=== PATIENT | female | born 1955 | race Caucasian/White ===

== ENCOUNTER → 2018-06-18 16:25 | Outpatient (CLI) | payer MEDICARE, SELFPAY | PROVIDERS: Family Provider Nurse Practitioner; PCP Nurse Practitioner; Visit Provider Physician Assistant | DX: L02.212 Cutaneous abscess of back [any part, except buttock and flank] (principal) | CPT/HCPCS: 87070; 87075; 87077; 87186; 87205 ==

== ENCOUNTER 2018-07-30 14:49 | Emergency (ER) | payer OTHER, MEDICARE, MEDICAID, SELFPAY ==
[2018-07-30 14:51] VITALS: BP 168/96; PULSE 107; RESP 16; TEMP 36.3; O2SAT 97; BMI 45.6
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
[2018-07-30 16:39] VITALS: PULSE 117; RESP 17; O2SAT 96
== END 2018-07-30 16:40 | disposition home or self-care (01) ==
PROVIDERS: Emergency Provider Emergency Medicine; Family Provider Nurse Practitioner; PCP Nurse Practitioner
DX: S09.90XA Unspecified injury of head, initial encounter (principal); M54.2 Cervicalgia; M79.601 Pain in right arm; M54.5 Low back pain; V49.40XA Driver injured in collision with unspecified motor vehicles in traffic accident, initial encounter; Y93.9 Activity, unspecified; Y92.9 Unspecified place or not applicable; Y99.9 Unspecified external cause status; I25.10 Atherosclerotic heart disease of native coronary artery without angina pectoris; I50.9 Heart failure, unspecified; E11.9 Type 2 diabetes mellitus without complications; J45.909 Unspecified asthma, uncomplicated; Z79.4 Long term (current) use of insulin; I25.2 Old myocardial infarction; Z87.891 Personal history of nicotine dependence; Z95.810 Presence of automatic (implantable) cardiac defibrillator
CPT/HCPCS: 70450; 72100; 72125; 99282

== ENCOUNTER → 2019-07-28 14:31 | Outpatient (CLI) | payer MEDICARE, SELFPAY ==
[2019-07-28 14:20] VITALS: BMI 45.6
[2019-07-28 15:24] LABS: Anion Gap 4 (5-15); BUN 13 mg/dL (7-18); BUN/Creat Ratio 16.9 RATIO (10-20); Calcium,Total 8.5 mg/dL (8.5-10.1); Chloride 107 mmol/L (98-107); Creatinine, Serum 0.77 mg/dL (0.55-1.02); EST Glomerular Filtration Rate 80 mL/min (>60); Est Glom Filt Rate - Afr Amer 97 mL/min (>60); Glucose 319 mg/dL (74-106); Sodium Level 140 mmol/L (136-145)
[2019-07-28 15:30] LABS: BNP,B-Type NATRIURETIC PEPTIDE 259.2 pg/mL (0-100)
== END ==
PROVIDERS: Family Provider Nurse Practitioner; PCP Nurse Practitioner; Referring Provider Nurse Practitioner Family; Visit Provider Nurse Practitioner Family
DX: I25.10 Atherosclerotic heart disease of native coronary artery without angina pectoris (principal); I50.20 Unspecified systolic (congestive) heart failure; E11.9 Type 2 diabetes mellitus without complications; I25.5 Ischemic cardiomyopathy; R07.9 Chest pain, unspecified; R06.00 Dyspnea, unspecified
CPT/HCPCS: 36415; 80048; 83880

== ENCOUNTER → 2019-08-11 08:56 | Outpatient (CLI) | payer MEDICARE, SELFPAY ==
[2019-07-28 14:20] VITALS: BMI 45.6
[2019-08-11 09:47] LABS: Anion Gap 4 (5-15); BUN 15 mg/dL (7-18); Calcium,Total 8.7 mg/dL (8.5-10.1); Chloride 102 mmol/L (98-107); Creatinine, Serum 0.79 mg/dL (0.55-1.02); EST Glomerular Filtration Rate 78 mL/min (>60); Est Glom Filt Rate - Afr Amer 95 mL/min (>60); Glucose 228 mg/dL (74-106); Potassium 3.9 mmol/L (3.5-5.1); Sodium Level 137 mmol/L (136-145)
== END ==
PROVIDERS: Family Provider Nurse Practitioner; PCP Nurse Practitioner; Referring Provider Nurse Practitioner Family; Visit Provider Nurse Practitioner Family
DX: R06.00 Dyspnea, unspecified (principal)
CPT/HCPCS: 36415; 80048

== ENCOUNTER → 2019-08-17 06:31 | Outpatient (CLI) | payer MEDICARE, MEDICAID, SELFPAY ==
[2019-07-28 14:20] VITALS: BMI 45.6
--- NOTE | 2019-08-17 06:33 | ECHOCS_ITS ---
Reason For Study: DYSPNEA Procedure This was a 2D Doppler, Color Flow transthoracic echocardiogram. Contrast injection was performed. The study was technically difficult. Exam performed in department. Left Ventricle Severely dilated left ventricle. The estimated ejection fraction is 20 %. Severe segmental systolic dysfunction (see wall motion). Hutchins : Akinetic. Mid-anteroseptal : Akinetic. Mid-Inferior: Normal. Infero-Basal: Normal. Lateral-Basal: Normal. Anterio-Basal: Normal. The rest of the wall segments are hypokinetic. Right Ventricle Normal RV size. ICD or pacer leads identified within the right ventricle. Normal systolic function. Atria The left atrium is moderately enlarged. The right atrium is mildly enlarged. Mitral Valve Normal mitral valve. Mild-Moderate (1-2+) eccentric mitral valve insufficiency. Tricuspid Valve Normal tricuspid valve. Mild to moderate (1-2+) tricuspid valve insufficiency. Pulmonary artery systolic pressure is 36 mmHg. Aortic Valve The aortic valve is not well visualized. Pulmonic Valve The pulmonic valve is not well visualized. Great Vessels Normal aortic root. The pulmonary artery is normal size. Normal inferior vena cava. Pericardium/Pleural No pericardial effusion. Medication Diluted definity 4.0ml given slow IV push to enhance endocardial definition. MMode/2D Measurements & Calculations LVIDd: 7.2 cm IVSd: 0.99 cm Ao root diam: 3.8 cm LVIDs: 6.7 cm LVPWd: 1.1 cm RVDd: 5.2 cm FS: 6.6 % LAV(MOD-bp): 103.1 ml LVAd ap4: 47.1 cm2 SV(MOD-sp4): 44.9 ml LAV(MOD-bp) Indexed: 43.3 ml/m2 EDV(MOD-sp4): 194.1 ml LAV(MOD-sp2): 83.8 ml EDV(sp4-el): 204.7 ml LAV(MOD-sp4): 110.8 ml LVAs ap4: 39.5 cm2 ESV(MOD-sp4): 149.2 ml ESV(sp4-el): 157.1 ml EF(MOD-sp4): 23.1 % EF(sp4-el): 23.3 % SV(sp4-el): 47.6 ml LA A4 area: 29.2 cm2 LA dimension(2D): 5.1 cm RA A4 area: 18.9 cm2 Doppler Measurements & Calculations MV E max mark: 122.3 cm/sec Lat Peak E' Mark: 4.7 cm/sec Med Peak E' Mark: 1.9 cm/sec MV A max mark: 84.7 cm/sec E/E' lat: 26.3 E/E' med: 63.0 MV E/A: 1.4 Ao V2 max: 72.7 cm/sec LV V1 max: 63.9 cm/sec PA V2 max: 85.7 cm/sec Ao max P.1 mmHg LV V1 max P.6 mmHg TR max mark: 281.2 cm/sec TR max P.7 mmHg Interpretation Summary Severely dilated left ventricle. The estimated ejection fraction is 20 %. Severe segmental systolic dysfunction (see wall motion). Compared to previous study, the left ventricular systolic function is the same.. Contrast injection was performed. Ordering Physician: Beni Spear/Triston Chau Referring Physician: VELMA TOMPKINS Performed By: Shawna Orona, HIWOTCS, RVT
--- NOTE | 2019-08-17 15:09 | STRESSREP ---
Stress Test Report Pharmacologic myocardial perfusion stress test. 64-year-old lady with a history of ischemic cardiomyopathy and a totally occluded left anterior descending artery. Myocardial perfusion protocol. Resting EKG demonstrates normal sinus rhythm with a rate of 98 bpm poor R wave progression is noted resting blood pressures 138/84 mmHg. 0.4 mg of regadenoson was infused per usual protocol followed by rapid intravenous saline flush injection continuous EKG monitoring was performed. The patient maintained sinus rhythm throughout the recording. The maximum heart rate attained was 121 bpm which was 44% of maximum predicted heart rate. The maximum workload was 1 metabolic equivalent. Myocardial perfusion protocol. Next line 14.5 mCi of technetium 99m sestamibi was injected at rest. 0.4 mg of regadenoson was infused per usual protocol peak infusion 44.6 mCi of technetium 99m sestamibi was injected stress images were obtained stress and rest images were reconstructed in comparing the short axis vertical long horizontal long axis. Gated images were also obtained for next Perfusion SPECT analysis: Review of the stress images demonstrate a dilated cardiac silhouette size. There is a large defect involving the mid to distal anterior wall, apex and anterior septal wall. The septum and lateral wall appeared to be well perfused. The basal inferior wall has reduced perfusion. This is present on the stress and rest images to a similar extent suggesting an extensive anterior apical infarct. The right ventricle is noted to be prominent and dilated as well. Gated SPECT analysis: The gated ejection fraction is noted to be 19%. Conclusion: Myocardial perfusion stress test with previous extensive anterior apical infarct. Dilated prominent right ventricle. Ischemic cardiomyopathy. Ejection fraction of 19%.
== END ==
PROVIDERS: Family Provider Nurse Practitioner; PCP Nurse Practitioner; Referring Provider Nurse Practitioner Family; Visit Provider Nurse Practitioner Family
DX: R06.00 Dyspnea, unspecified (principal); R06.02 Shortness of breath; I25.10 Atherosclerotic heart disease of native coronary artery without angina pectoris; I50.20 Unspecified systolic (congestive) heart failure; E11.9 Type 2 diabetes mellitus without complications; I25.5 Ischemic cardiomyopathy; R07.9 Chest pain, unspecified
CPT/HCPCS: 78452; 93017; 93306; A9500; Q9957; A4216; C8929; J2785

== ENCOUNTER 2019-11-05 13:58 | Inpatient (IN) | payer MEDICARE, MEDICAID, SELFPAY ==
[2019-07-28 14:20] VITALS: BMI 45.6
[2019-11-05] VITALS (12 sets, daily range): BP systolic 124–142; BP diastolic 71–102; PULSE 103–125; RESP 19–28; TEMP 36.6–37.7; O2SAT 92–94; BMI 65.0; BMI 65.1; BMI 63.6
--- NOTE | 2019-11-05 14:18 | EKG12_ITS ---
Test Reason : SOB Blood Pressure : / mmHG Vent. Rate : 115 BPM Atrial Rate : 115 BPM P-R Int : 140 ms QRS Dur : 132 ms QT Int : 358 ms P-R-T Axes : 058 -58 095 degrees QTc Int : 495 ms Sinus tachycardia Possible Left atrial enlargement Left axis deviation Non-specific intra-ventricular conduction block Nonspecific T - wave abnormality Abnormal ECG Confirmed by MICHELE THOMPSON, NAILA ([id number]), video tape editor SHAKILA JONES ([id number]) on 11/09/2019 11:49:00 AM Referred By: JOSIE Confirmed By:NAILA BAUTISTA MD
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
--- NOTE | 2019-11-05 14:23 | RAD_ITS ---
STUDY: X-RAY CHEST REASON FOR EXAM: Female, 64 years old. Shortness of breath. TECHNIQUE: Single AP portable view of the chest. COMPARISON: Comparison is made with prior study dated November 06, 2017. FINDINGS: EKG electrodes are seen. There is evidence of vascular congestion and CHF. There is no demonstrated pleural abnormality. There is moderate cardiac enlargement. A left-sided unipolar pacemaker seen. Normal mediastinum and eileen. Normal visualized pulmonary arteries. There is atherosclerotic calcification of the aortic arch with tortuosity. There are diffuse degenerative changes of the visualized thoracic spine. Normal visualized ribs, clavicles, and shoulders. There is no demonstrated abnormality of the visualized soft tissue structures of the upper abdomen. RAD/Chest 1 View (Portable) IMPRESSION: Cardiomegaly and CHF. Electronically Signed: Suraj Eagle, at 14:36 EST , Service support ,
[2019-11-05] MEDS: Ondansetron 4 MG/2 ML Vial IV (14:48)
[2019-11-05 14:50] LABS: Absolute Lymphocyte Count 0.82 X10^3/uL (0.83-4.51); Absolute Neutrophil Count 21.8 X10^3/uL (2.0-7.7); Basophil% 0.4 % (0-1); Eosinophil# 0.01 X10^3/uL; Hematocrit 46.3 % (37-47); Hemoglobin 14.9 g/dL (12.0-15.0); Lymphocyte # 0.82 X10^3/ul (4.0); Lymphocyte % 3.4 % (19-41); Mean Corp Hgb Conc 32.2 g/dL (32-36); Mean Corpuscular Volume 93.3 fL (81-99); Mean Platelet Vol. 11.4 fl (6.2-12.0); Monocyte# 1.17 X10^3/uL; Monocyte% 4.9 % (0-10); NRBC Flagged by Analyzer 0 % (0-5); Neutrophil # 21.84 X10^3/uL (2.7-7.7); Neutrophil % 90.6 % (47-70); POSITIVE DIFFERENTIAL YES; Platelet Count 222 K/mm3 (150-450); RBC Distribution Width CV 13.9 % (11.6-14.6); RBC Distribution Width SD 47.5 fl (35.1-43.9); Red Blood Count 4.96 M/mm3 (4.2-5.4); White Blood Count 24.1 K/mm3 (4.4-11.0)
[2019-11-05 14:52] LABS: Differential Indicated SCAN CRITERIA MET
[2019-11-05 15:10] LABS: Differential Comment SCANNED
[2019-11-05 15:20] LABS: Anion Gap 6 (5-15); BUN 13 mg/dL (7-18); BUN/Creat Ratio 14.2 RATIO (10-20); Calcium,Total 8.9 mg/dL (8.5-10.1); Chloride 102 mmol/L (98-107); Creatinine, Serum 0.92 mg/dL (0.55-1.02); EST Glomerular Filtration Rate 66 mL/min (>60); Est Glom Filt Rate - Afr Amer 80 mL/min (>60); Estimated Creatinine Clearance 51.78 ml/min; Glucose 227 mg/dL (74-106); Potassium 4.7 mmol/L (3.5-5.1); Sodium Level 137 mmol/L (136-145)
[2019-11-05] MEDS: Ipratropium/Albuterol Sulfate 3 ML AMPUL.NEB INHALATION ×3 (15:59→23:27)
[2019-11-05 16:06] LABS: Mucous, Urine 0 SEEN /hpf (<or=2+)
[2019-11-05] MEDS: MethylPREDNISolone 125 MG/2 ML Vial IV (16:25)
[2019-11-05 16:51] LABS: Lactic Acid 3.1 mmol/L (0.4-1.9)
--- NOTE | 2019-11-05 17:39 | NURSING ---
PCU OBS SOB PAINTSIL
--- NOTE | 2019-11-05 18:00 | PCM.HP.STD ---
<Noe Cohen - Last Filed: 11/05/19 18:00> Problem List (1) Sepsis Status: Acute (2) AALIYAH (obstructive sleep apnea) Status: Acute (3) Gastroenteritis Status: Acute (4) Chronic respiratory failure with hypoxia Status: Chronic (5) Systolic CHF Status: Chronic Comment: EF 25% 04/2014 (6) Diabetes mellitus, type II Status: Chronic (7) Asthma Status: Chronic (8) Hyperlipidemia Status: Chronic (9) Cardiomyopathy, ischemic Status: Chronic (10) CAD (coronary artery disease) Status: Chronic (11) Morbid obesity with BMI of 40.0-44.9, adult Status: Chronic History of Present Illness Date of Admission: 11/05/19 Chief Complaint: nausea and vomiting The patient is a 64 year old F with pmhx as above who presented to the ER with intractable nausea and dry heaving, and diarrhea. She was in her normal state of health until this morning. At about 0400 she started having dry heaves. She has also had about 4 episodes of diarrhea. She has no abdominal pain, no fevers or chills. She has not eaten anything today. She did drink about 1/2 gallon of water this AM. She has some LE edema, but again this is chronic. She states her friend brought her some new dumpling to eat that she had never had before from the [employer] store. She has not recently travelled, and has no contact with farm animals. Her neighbor is currently sick. She also has body aches, rhinorrhea, congestion, nonproductive cough. She is chronically SOB and on O2 at 3lpm all the times 2/2 COPD. [] Past Medical History Past Medical History (Chronic Problems): Chronic Problems (Last Reviewed 06/30/18 @ 13:32 by Natalia Pope) Chronic respiratory failure with hypoxia (Chronic) Atherosclerotic heart disease of [place] coronary artery without angina pectoris (Chronic) Automatic implantable cardiac defibrillator in situ (Chronic) Implant: 04/12/[address] 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 Thamllium redistribution study 05/13/14 to assess viability performed, demonstrating large area of infarct involving the anterior wall apex and part of the lateral wall (medical therapy only). Systolic CHF (Chronic) EF 25% 04/2014 History of tobacco use (Chronic) Diabetes mellitus, type II (Chronic) Asthma (Chronic) Allergic rhinitis (Chronic) Hyperlipidemia (Chronic) Hyponatremia (Chronic) Cardiomyopathy, ischemic (Chronic) CAD (coronary artery disease) (Chronic) Morbid obesity with BMI of 40.0-44.9, adult (Chronic) Medical History: Medical History (Last Reviewed 06/30/18 @ 13:32 by Natalia Pope) Atherosclerotic heart disease of [place] coronary artery without angina pectoris (Chronic) I25.10 Old myocardial infarction (Chronic) I25.2 Family history of premature coronary heart disease (Chronic) Z82.49 Male < 55 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 Thamllium redistribution study 05/13/14 to assess viability performed, demonstrating large area of infarct involving the anterior wall apex and part of the lateral wall (medical therapy only). Systolic CHF (Chronic) I50.20 EF 25% 04/2014 History of tobacco use (Chronic) Z87.891 Diabetes mellitus, type II (Chronic) E11.9 Hyperlipidemia (Chronic) E78.5 Hyponatremia (Chronic) E87.1 Cardiomyopathy, ischemic (Chronic) I25.5 CAD (coronary artery disease) (Chronic) I25.10 Dyspnea (Acute) R06.00 Chest pain (Acute) R07.9 Hyperglycemia (Acute) R73.9 Morbid obesity with BMI of 40.0-44.9, adult (Chronic) E66.01, Z68.41 Allergies BRADY Inhibitors Allergy (Verified 11/05/19 14:09) unknown codeine Allergy (Verified 11/05/19 14:09) Hives lisinopril Allergy (Verified 11/05/19 14:09) Unknown metformin Allergy (Verified 11/05/19 14:09) Unknown Aupsmoi-Vin-Cvw Reductase Inhibitor Allergy (Verified 11/05/19 14:09) Unknown Home Medications: Ambulatory Orders Medication Instructions Recorded insulin aspart (U-100) 100 unit/mL 15 unit SC TIDCM 06/18/18 (3 mL) subcutaneous pen insulin glargine (U-100) 100 60 unit SC BID ml 06/18/18 unit/mL subcutaneous solution albuterol sulfate HFA 90 1 puff INHALATION Q6H PRN PRN 07/28/19 mcg/actuation aerosol inhaler furosemide 40 mg tablet 40 mg PO BID tab 08/11/19 potassium chloride ER 10 mEq 10 meq PO BID #180 cap 08/11/19 capsule,extended release Cetirizine HCl [Zyrtec] 10 mg PO DAILY 11/05/19 Ibuprofen 600 mg PO DAILY PRN PRN 11/05/19 Surgical History: Surgical History (Last Reviewed 06/30/18 @ 13:32 by Natalia Pope) Automatic implantable cardiac defibrillator in situ (Chronic) Z95.810 Implant: 04/12/[address] Riley S/P cataract extraction Z98.49 S/P cholecystectomy Z90.49 Soft tissue abscess L02.91 Surgical History: - - R thigh wound debridments, Cholecystectomy, Cardiac catheterization. Psychiatric History: No pertinent psych hx AUTOPSY ASSISTANT History: No pertinent AUTOPSY ASSISTANT history Lives: Alone Smoking Status: Former smoker Tobacco Use: Non-smoker Alcohol: None Drugs: None - *Family History Maternal Family History: Family History (Last Reviewed 11/05/19 @ 18:07 by NAGI Willett) Mother CAD (coronary artery disease) CHF (congestive heart failure) Diabetes COPD (chronic obstructive pulmonary disease) Father CAD (coronary artery disease) Brother CAD (coronary artery disease) Diabetes Brother Diabetes Sister CAD (coronary artery disease) Thyroid disorder History Items: Diabetes, Heart Disease Paternal Family History: Family History (Last Reviewed 11/05/19 @ 18:07 by NAGI Willett) Mother CAD (coronary artery disease) CHF (congestive heart failure) Diabetes COPD (chronic obstructive pulmonary disease) Father CAD (coronary artery disease) Brother CAD (coronary artery disease) Diabetes Brother Diabetes Sister CAD (coronary artery disease) Thyroid disorder History Items: Heart Disease Review of Systems Constitutional: Denies: Chills, Fever, Weight Change HEENT: Denies: Head Aches, Sinus Congestion, Sinus Drainage Cardiovascular: Reports: Edema. Denies: Chest Pain, Chest Pressure, Chest Tightness, Palpitations Respiratory: Reports: Cough. Denies: Shortness of Breath, Shortness of breath at rest, Sputum production, Wheezing Gastrointestinal: Reports: Diarrhea, Nausea, Vomiting. Denies: Abdominal Pain Genitourinary: Denies: Dysuria Musculoskeletal: Denies: Joint Pain, Joint Tenderness Skin: Denies: Rash, Wounds Neurological: Denies: Numbness, Tingling, Focal weakness Psychiatric: Denies: Anxiety, Depression, Homicidal Ideations, Suicidal Ideations Hematologic/ Lymphatic: Denies: Easy Bruising, Easy Bleeding VTE Information - Inpt Only VTE Present on Admission: No VTE Mechan Device Prophylaxis: None VTE Pharm Prophylaxis ordered?: Yes Patient Problems: Active and Suspected Problems (Last Reviewed 06/30/18 @ 13:32 by Natalia Pope) Sepsis (Acute) AALIYAH (obstructive sleep apnea) (Acute) Gastroenteritis (Acute) - Physical Exam Vitals/I&O's: Vital Signs Temp Pulse Resp BP Pulse Ox 99.1 F 112 H 19 H 129/102 H 94 11/05/19 14:00 11/05/19 16:25 11/05/19 16:25 11/05/19 16:25 11/05/19 16:25 Oxygen Flow Rate (L/min) 4 Oxygen Delivery Method Nasal Cannula Weight: 367 lb 4.642 oz Body Mass Index (BMI) 65.0 General: Alert, Oriented x3, Cooperative HEENT: Atraumatic, PERRLA, EOMI, Normocephalic Neck: Supple, No JVD, Negative Carotid Bruits Lungs: Clear to auscultation, Normal air movement Cardiovascular: Regular rate, No murmurs Abdomen: Bowel Sounds Present, Soft, Non Tender, Obese Extremities: No edema, Capillary Refill Less than 3 Seconds Skin: No rashes, No breakdown Musculoskeletal: No Tenderness to Palpation of Joints or Extremities Neurological: Cranial nerves II-XII grossly intact Psych/Mental Status: Normal Affect, Appropriate, Alert and oriented to time, place, person, mood and affect Laboratory Results 11/05/19 14:45: WBC 24.1 H, RBC 4.96, Hgb 14.9, Hct 46.3, MCV 93.3, MCH 30.0, MCHC 32.2, RDW Std Deviation 47.5 H, RDW Coeff of Tabby 13.9, Plt Count 222, MPV 11.4, Immature Gran % (Auto) 0.700, Neut % (Auto) 90.6 H, Lymph % (Auto) 3.4 L, [place] % (Auto) 4.9, Eos % (Auto) 0.0, Baso % (Auto) 0.4, Absolute Neuts (auto) 21.8 H, Absolute Lymphs (auto) 0.82 L, Nucleated RBC % 0, Differential Comment SCANNED 11/05/19 14:45: Sodium 137, Potassium 4.7, Chloride 102, Carbon Dioxide 29.0, Anion Gap 6, BUN 13, Creatinine 0.92, Estim Creat Clear Calc 51.78, Est GFR (MDRD) Af Amer 80, Est GFR (MDRD) Non-Af 66, BUN/Creatinine Ratio 14.2, Glucose 227 H, Calcium 8.9, Troponin I 0.015 11/05/19 14:45: B-Natriuretic Peptide Pending 11/05/19 15:50: Urine Color Pending, Urine Clarity Pending, Urine pH Pending, Ur Specific [place] Pending, Urine Protein Pending, Urine Glucose (UA) Pending, Urine Ketones Pending, Urine Occult Blood Pending, Urine Nitrite Pending, Urine Bilirubin Pending, Urine Urobilinogen Pending, Ur Leukocyte Esterase Pending, Urine RBC Pending, Urine WBC Pending, Ur Squamous Epith Cells Pending, Urine Bacteria Pending, Urine Mucus Pending 11/05/19 16:00: Lactic Acid 3.1 H* Assessment/Plan All Active Problems (Last Reviewed 06/30/18 @ 13:32 by Natalia Pope) Sepsis (Acute) AALIYAH (obstructive sleep apnea) (Acute) Gastroenteritis (Acute) Dyspnea (Acute) Chest pain (Acute) Pseudohypontremia (Acute) Hyperglycemia (Acute) 1. Acute severe sepsis 2/2 gastroenteritis presumed viral, possibly viral URI - URI symptoms and acute onset of N/V/D. WBC 24k, LA elevated at 3.1, temp 96.0, tachycardia and tachypnea. Send viral panel and enteric panel. UA is pending. Supportive care. IV fluids - Avoid overdiuresis with hx ischemic CM and LE edema. 2. Hx systolic CHF and ischemic CM - hold lasix. BNP pending. EF 20%. Has AICD. Trop neg. 3. Chronic hypoxic resp failure 2/2 COPD - doubt acute exacerbation. No increased SOB or wheezing. Continue home meds. 4. DMt2 with morbid obesity - continue insulin + SSI. 5. Hx CAD, NSTEMI. Follows Dr. Chau. 6. AALIYAH - continue CPAP qhs. DVT ppx: lovenox DC planning: PTOT This patient was seen by Noe Cohen PA-C under the supervision of Dr. Encarnacion. <Julianne Encarnacion - Last Filed: 11/05/19 18:48> History of Present Illness The patient is a 64 year old F [] Past Medical History Medical History: Medical History (Last Reviewed 06/30/18 @ 13:32 by Natalia Pope) Atherosclerotic heart disease of [place] coronary artery without angina pectoris (Chronic) I25.10 Old myocardial infarction (Chronic) I25.2 Family history of premature coronary heart disease (Chronic) Z82.49 Male < 55 Other fdc (current) drug therapy (Chronic) Z79.899 Acute on chronic systolic CHF (congestive heart failure) (Chronic) I50.23 NSTEMI (non-ST elevated myocardial infarction) (Chronic) I21.4 Cardiac catheterization 04/2014 w/ normal left main coronary artery, totally occluded left anterior descending at the ostium, left circumflex artery without disease, dominant right coronary artery with no significant disease, severe left ventricular systolic dysfunction with anterior kinesis with EF estimated 25%. Thamllium redistribution study 05/13/14 to assess viability performed, demonstrating large area of infarct involving the anterior wall apex and part of the lateral wall (medical therapy only). Systolic CHF (Chronic) I50.20 EF 25% 04/2014 History of tobacco use (Chronic) Z87.891 Diabetes mellitus, type II (Chronic) E11.9 Hyperlipidemia (Chronic) E78.5 Hyponatremia (Chronic) E87.1 Cardiomyopathy, ischemic (Chronic) I25.5 CAD (coronary artery disease) (Chronic) I25.10 Dyspnea (Acute) R06.00 Chest pain (Acute) R07.9 Hyperglycemia (Acute) R73.9 Morbid obesity with BMI of 40.0-44.9, adult (Chronic) E66.01, Z68.41 Allergies BRADY Inhibitors Allergy (Verified 11/05/19 14:09) unknown codeine Allergy (Verified 11/05/19 14:09) Hives lisinopril Allergy (Verified 11/05/19 14:09) Unknown metformin Allergy (Verified 11/05/19 14:09) Unknown Gducnac-Zkf-Col Reductase Inhibitor Allergy (Verified 11/05/19 14:09) Unknown Surgical History: Surgical History (Last Reviewed 06/30/18 @ 13:32 by Natalia Pope) Automatic implantable cardiac defibrillator in situ (Chronic) Z95.810 Implant: 04/12/[address] Riley S/P cataract extraction Z98.49 S/P cholecystectomy Z90.49 Soft tissue abscess L02.91 - *Family History Maternal Family History: Family History (Last Reviewed 11/05/19 @ 18:07 by NAGI Willett) Mother CAD (coronary artery disease) CHF (congestive heart failure) Diabetes COPD (chronic obstructive pulmonary disease) Father CAD (coronary artery disease) Brother CAD (coronary artery disease) Diabetes Brother Diabetes Sister CAD (coronary artery disease) Thyroid disorder Paternal Family History: Family History (Last Reviewed 11/05/19 @ 18:07 by NAGI Willett) Mother CAD (coronary artery disease) CHF (congestive heart failure) Diabetes COPD (chronic obstructive pulmonary disease) Father CAD (coronary artery disease) Brother CAD (coronary artery disease) Diabetes Brother Diabetes Sister CAD (coronary artery disease) Thyroid disorder - Physical Exam Vitals/I&O's: Vital Signs Temp Pulse Resp BP Pulse Ox 99.9 F H 111 H 23 H 124/71 H 93 11/05/19 18:13 11/05/19 18:13 11/05/19 18:13 11/05/19 18:13 11/05/19 18:13 Oxygen Flow Rate (L/min) 4 Oxygen Delivery Method Nasal Cannula Weight: 166.6 kg Body Mass Index (BMI) 65.0 Laboratory Results 11/05/19 14:45: WBC 24.1 H, RBC 4.96, Hgb 14.9, Hct 46.3, MCV 93.3, MCH 30.0, MCHC 32.2, RDW Std Deviation 47.5 H, RDW Coeff of Tabby 13.9, Plt Count 222, MPV 11.4, Immature Gran % (Auto) 0.700, Neut % (Auto) 90.6 H, Lymph % (Auto) 3.4 L, [place] % (Auto) 4.9, Eos % (Auto) 0.0, Baso % (Auto) 0.4, Absolute Neuts (auto) 21.8 H, Absolute Lymphs (auto) 0.82 L, Nucleated RBC % 0, Differential Comment SCANNED 11/05/19 14:45: Sodium 137, Potassium 4.7, Chloride 102, Carbon Dioxide 29.0, Anion Gap 6, BUN 13, Creatinine 0.92, Estim Creat Clear Calc 51.78, Est GFR (MDRD) Af Amer 80, Est GFR (MDRD) Non-Af 66, BUN/Creatinine Ratio 14.2, Glucose 227 H, Calcium 8.9, Troponin I 0.015 11/05/19 14:45: B-Natriuretic Peptide Pending 11/05/19 15:50: Urine Color Mag, Urine Clarity Turbid, Urine pH 5.0, Ur Specific [place] 1.025, Urine Protein 500 H, Urine Glucose (UA) 250 H, Urine Ketones 15 H, Urine Occult Blood 250 H, Urine Nitrite Positive H, Urine Bilirubin 1 H, Urine Urobilinogen 4 H, Ur Leukocyte Esterase 25 H, Urine RBC 10-25 SEEN, Urine WBC 0-5 SEEN, Ur Squamous Epith Cells 0-5 SEEN, Amorphous Sediment 1+ URATE, Urine Bacteria 2+, Urine Mucus 0 SEEN 11/05/19 16:00: Lactic Acid 3.1 H* Assessment/Plan This patient was seen in conjunction with NAGI Willett. I have independently interviewed and examined the patient and reviewed pertinent historical, laboratory, and other data. Please refer to NAGI Willett note for his patient's presentation, findings, and recommendations. I have reviewed and his note and concur with his documentation 64-year-old female with multiple comorbidities significant for COPD on 3 L of oxygen, CHF with EF of 20%, status post ICD, CAD status post stents, type II DM, hypertension who comes in with complaints of nausea and dry heaving that started on the morning of admission. Patient admits to eating some dumplings that her friend both from the [employer] store. She denied any fever but had chills. She has not gone any worsening of her shortness of breath. She admits that her next-door neighbor is currently sick. She admits to runny nose and cough which is dry. She has been taking her Lasix but has not been drinking water. She drank about half a gallon of water this morning. Physical Exam: Gen: Looks in some discomfort, not pale, not jaundiced, super morbidly obese CVS:HS I +II, regular, no murmurs RESP: Diminished in all lung zones, no wheezes GI: BS present and normal, soft, nontender, no palpable organs EXT: Bilateral trace pedal edema ASSESSMENT: 1. Severe sepsis secondary to acute gastroenteritis, likely viral 2. Acute upper respiratory infection, no clear signs of COPD exacerbation 3. Chronic systolic CHF/ischemic cardiomyopathy/CAD 4. Chronic hypoxic respiratory failure/AALIYAH Plan: Enteric panel Resp panel Symptomatic treatment with prn anti-emetic Resume home lasix, strict I & Os Code Visit Inpatient E&M: 51364 Init Hosp L3
[2019-11-05 18:08] LABS: Color, Urine Amber (Yellow); Glucose, Dipstick 250 mg/dl (Normal); Ketone-Dipstick 15 mg/dl (Negative); Leukocyte Esterase-Dipstick 25 /ul (Negative); Nitrite-Dipstick Positive (Negative); Occult Blood-Urine 250 /ul (Negative); Protein-Dipstick 500 mg/dl (Negative); Specific Gravity, Urine 1.025 (1.002-1.030); Urine Clarity Turbid (Clear); Urine Urobilinogen 4 mg/dl (Normal)
[2019-11-05 18:10] LABS: Urine Bilirubin Dipstick 1 mg/dL (Negative)
[2019-11-05 18:23] LABS: White Blood Cells 0-5 SEEN /hpf (0-5)
[2019-11-05 18:24] LABS: Amorphous Sediment 1+ URATE; Bacteria 2+ /hpf (None Seen); Red Blood Cells-Urine 10-25 SEEN /hpf (0-5); Squamous Epithelial Cells - UA 0-5 SEEN /hpf (5-10)
[2019-11-05 18:40] LABS: BNP,B-Type NATRIURETIC PEPTIDE 437.1 pg/mL (0-100)
[2019-11-05 20:06] LABS: Reflex Lactate? Y
[2019-11-05 21:09] LABS: Lactic Acid 2.5 mmol/L (0.4-1.9)
[2019-11-05] MEDS: Insulin Lispro 100 UNIT/ML INSULN.PEN SC (21:44)
[2019-11-05 21:56] LABS: Bedside Glucose 277 mg/dL (70-110)
[2019-11-06] VITALS (14 sets, daily range): BP systolic 145–160; BP diastolic 68–88; PULSE 102–114; RESP 18–24; TEMP 36.3–36.9; O2SAT 93–96
[2019-11-06] MEDS: Ondansetron 4 MG/2 ML Vial IV (02:47)
[2019-11-06 06:26] LABS: Absolute Lymphocyte Count 0.55 X10^3/uL (0.83-4.51); Absolute Neutrophil Count 11.5 X10^3/uL (2.0-7.7); Basophil# 0.02 X10^3/uL; Basophil% 0.2 % (0-1); Hematocrit 42.7 % (37-47); Hemoglobin 13.5 g/dL (12.0-15.0); Lymphocyte # 0.55 X10^3/ul (4.0); Lymphocyte % 4.4 % (19-41); Mean Corp Hgb Conc 31.6 g/dL (32-36); Mean Corpuscular Hgb 29.2 pg (27.0-32.0); Mean Corpuscular Volume 92.4 fL (81-99); Mean Platelet Vol. 11.5 fl (6.2-12.0); Monocyte# 0.28 X10^3/uL; Monocyte% 2.3 % (0-10); NRBC Flagged by Analyzer 0 % (0-5); Neutrophil # 11.51 X10^3/uL (2.7-7.7); Neutrophil % 92.5 % (47-70); POSITIVE DIFFERENTIAL YES; POSITIVE MORPHOLOGY YES; Platelet Count 167 K/mm3 (150-450); RBC Distribution Width SD 47.2 fl (35.1-43.9); Red Blood Count 4.62 M/mm3 (4.2-5.4); White Blood Count 12.4 K/mm3 (4.4-11.0)
[2019-11-06 06:37] LABS: Differential Indicated SCAN CRITERIA MET
[2019-11-06 06:51] LABS: ALB/GLOB Ratio 0.5 RATIO (0.9-2.4); AST(SGOT) 18 U/L (15-37); Alanine Aminotransfer ALT/SGPT 11 U/L (13-56); Albumin, Serum 2.4 g/dL (3.2-5.0); Alkaline Phosphatase 79 U/L (45-117); Anion Gap 6 (5-15); BUN 20 mg/dL (7-18); BUN/Creat Ratio 23.2 RATIO (10-20); Calcium,Total 8.3 mg/dL (8.5-10.1); Chloride 103 mmol/L (98-107); Creatinine, Serum 0.86 mg/dL (0.55-1.02); EST Glomerular Filtration Rate 71 mL/min (>60); Est Glom Filt Rate - Afr Amer 85 mL/min (>60); Estimated Creatinine Clearance 52.96 ml/min; Globulin 4.6 g/dL (2.2-4.2); Glucose 295 mg/dL (74-106); Potassium 4.4 mmol/L (3.5-5.1); Sodium Level 135 mmol/L (136-145)
[2019-11-06] MEDS: Ipratropium/Albuterol Sulfate 3 ML AMPUL.NEB INHALATION ×4 (06:56→21:32)
[2019-11-06 07:19] LABS: Differential Comment SCANNED
[2019-11-06] MEDS: Insulin Lispro 100 UNIT/ML INSULN.PEN 15 UNIT SC ×3 (08:23→16:50)
[2019-11-06] MEDS: Insulin Lispro 100 UNIT/ML INSULN.PEN SC ×4 (08:23→22:10)
[2019-11-06] MEDS: Enoxaparin 40 MG/0.4 ML Syringe SC (08:24)
[2019-11-06 08:36] LABS: Bedside Glucose 270 mg/dL (70-110)
--- NOTE | 2019-11-06 10:39 | CASEMGMT ---
Addendum entered by Katia Ceron 11/06/19 11:10: KARLEY Mcintyre, made aware of consult for SW for AD and support. Also made aware pt may be interested in Meals on wheels. Original Note: RN DAVINA PARKING GARAGE MANAGER CM to room to meet with patient for initial transition planning/care coordination assessment. MARY LOU GHOSH introduced self and role at [facility]. Pt voices understanding and consents to assessment at this time. Pt sitting up in recliner chair. Pt is A/O at this time and answers all questions appropriately. Care providers, pharmacy, and demographics verified at this time. PCP: Eneida Betancourt Specialists: Isac--cardiology, Al--pulmonology Preferred Pharmacy: [facility] [place] Insurance: [facility] Prescription Benefit: [employer] Living Will/HPOA: does not have LW or HCPOA . Interested in more information and would like to talk with SW at this time to complete paperwork. LNOK: Has a daughter but pt states she does not want her added on demographics list. States her friend, Miguelina Blas, is very involved with her and her care and she wants her to be the only person listed as a salesperson pets and pet supplies. Living Arrangements: Lives alone in an apartment. No steps. is independent in the home, although she states she has not left her home for approx 2 months. States she has a good network of friends and neighbors that are supportive and willing to help her when she needs it. She states one her friends checks on her daily. Her friends have been doing grocery shopping for her lately as well. Transportation: Pt states drives self and states no transportation concerns at this time. States one of her friends will take her home @ discharge (Grace or Patrice) DME: has the following DME: rails/grab bars, hand held shower, cane, rollator, pulse ox, BP machine, glucometer--states is working well and has all the needed supplies, BIPAP through [employer], O2 @ 3L/M [facility] n[facility]--has concentrator only. Pt states is interested in getting an extended tub bench. HHC/SNF: No history of SNF or HHC. States would like HHC @ discharge. Provided with list of local HHC agencies. Pt states [facility] Call placed to Deloris @ [facility] and referral made. She was made aware anticipate discharge tomorrow 11/07. She states they are able to accept pt. Deloris was also made aware that pt is interested in getting an extended tub bench. She states their therapists can evaluate for that and assist as needed. Has had CCN in 2013 [address] an [address] but is not interested in CCN again. Pt wishes to return home and states has no concerns with going home at time of discharge. CM to follow for any increasing oxygen needs and any further discharge planning/needs. Pt voices no further concerns/needs at this time. Advised pt to ask for CM if any further questions/concerns/needs arise. Voices understanding. PLAN: Home w/[facility]. Follow for any increasing oxygen needs. Currently has home oxygen @ 3 L/M via n/c @ only. Will need Home oxygen testing completed prior to discharge. SW consult for AD and support. Pt states may be interested Meals on Wheels. Anaya FAGAN RN CM
--- NOTE | 2019-11-06 12:14 | CASEMGMT ---
Social Work SW met with pt and introduced self and role of SW. Pt stating she would like to complete advance directives. SW explained both the living will and Health Care POA and assisted pt in completing documents. Pt naming her friend Mary Ann Blas as HCPOA. Original given to pt and copy placed in pt chart. Palliative Care Screening Tool completed with pt score of 9. Discussed palliative care with pt and provided written information. Pt is agreeable to palliative care referral. Referral made to [facility] and clinical information faxed with request that Palliative contact pt directly to set up appointment. Pt had mentioned interest in MOW to RN CM. SW broached topic with pt and she stated she is not sure she would want this. Written information provided on the Meals on Wheels program. Pt is appreciative for info. No further needs at this time. SW will remain available should needs arise. CLARICE Valle
[2019-11-06 12:16] LABS: Bedside Glucose 331 mg/dL (70-110)
--- NOTE | 2019-11-06 12:44 | PCM.PN.HOSP ---
<Noe Cohen - Last Filed: 11/06/19 12:44> Patient Problems: Active and Suspected Problems (Last Reviewed 06/30/18 @ 13:32 by Natalia Pope) Sepsis (Acute) AALIYAH (obstructive sleep apnea) (Acute) Gastroenteritis (Acute) Reason for Visit: nausea/diarrhea Subjective: one episode vomiting after supper, this AM somewhat nauseous. 1 stool this am, now soft, not watery. no black or red blood in stool or vomit. No fever/chills. No SOB/cough. Pt resting comfortably in bed NAD. Tolerated breakfast. Vitals/I&O's: Vital Signs Temp Pulse Resp BP Pulse Ox 98.1 F 106 H 18 145/68 H 96 11/06/19 10:10 11/06/19 11:08 11/06/19 11:08 11/06/19 10:10 11/06/19 11:08 Oxygen Flow Rate (L/min) 4 Oxygen Delivery Method Nasal Cannula Weight: 359 lb 5.655 oz Body Mass Index (BMI) 63.6 Intake and Output for Last 24 Hours 11/04/19 11/05/19 11/06/19 23:59 23:59 23:59 Intake Total 240 / 240 480 / 480 Output Total 300 / 300 Balance 240 / 240 180 / 180 General: Alert, Oriented x3, Cooperative HEENT: Atraumatic, PERRLA, EOMI, Normocephalic Neck: Supple, No JVD, Negative Carotid Bruits Lungs: Clear to auscultation, Normal air movement Cardiovascular: Regular rate, No murmurs Abdomen: Bowel Sounds Present, Soft, Non Tender, Obese Extremities: No edema, Capillary Refill Less than 3 Seconds Skin: No rashes, No breakdown Musculoskeletal: No Tenderness to Palpation of Joints or Extremities Neurological: Cranial nerves II-XII grossly intact Psych/Mental Status: Normal Affect, Appropriate, Alert and oriented to time, place, person, mood and affect Microbiology Past 72 Hours 11/06/19 03:49 Stool Enteric Bacteriology - Final 11/05/19 19:55 Mucosa - Nose Respiratory Panel (PCR) - Final Laboratory Results 11/05/19 14:45: WBC 24.1 H, RBC 4.96, Hgb 14.9, Hct 46.3, MCV 93.3, MCH 30.0, MCHC 32.2, RDW Std Deviation 47.5 H, RDW Coeff of Tabby 13.9, Plt Count 222, MPV 11.4, Immature Gran % (Auto) 0.700, Neut % (Auto) 90.6 H, Lymph % (Auto) 3.4 L, [place] % (Auto) 4.9, Eos % (Auto) 0.0, Baso % (Auto) 0.4, Absolute Neuts (auto) 21.8 H, Absolute Lymphs (auto) 0.82 L, Nucleated RBC % 0, Differential Comment SCANNED 11/05/19 14:45: Sodium 137, Potassium 4.7, Chloride 102, Carbon Dioxide 29.0, Anion Gap 6, BUN 13, Creatinine 0.92, Estim Creat Clear Calc 51.78, Est GFR (MDRD) Af Amer 80, Est GFR (MDRD) Non-Af 66, BUN/Creatinine Ratio 14.2, Glucose 227 H, Calcium 8.9, Troponin I 0.015 11/05/19 14:45: B-Natriuretic Peptide 437.1 H 11/05/19 15:50: Urine Color Mag, Urine Clarity Turbid, Urine pH 5.0, Ur Specific Sebastian 1.025, Urine Protein 500 H, Urine Glucose (UA) 250 H, Urine Ketones 15 H, Urine Occult Blood 250 H, Urine Nitrite Positive H, Urine Bilirubin 1 H, Urine Urobilinogen 4 H, Ur Leukocyte Esterase 25 H, Urine RBC 10-25 SEEN, Urine WBC 0-5 SEEN, Ur Squamous Epith Cells 0-5 SEEN, Amorphous Sediment 1+ URATE, Urine Bacteria 2+, Urine Mucus 0 SEEN 11/05/19 16:00: Lactic Acid 3.1 H* 11/05/19 20:21: Lactic Acid 2.5 H* 11/05/19 21:39: POC Glucose 277 H 11/06/19 05:14: WBC 12.4 H, RBC 4.62, Hgb 13.5, Hct 42.7, MCV 92.4, MCH 29.2, MCHC 31.6 L, RDW Std Deviation 47.2 H, RDW Coeff of Tabby 14.0, Plt Count 167, MPV 11.5, Immature Gran % (Auto) 0.600, Neut % (Auto) 92.5 H, Lymph % (Auto) 4.4 L, [place] % (Auto) 2.3, Eos % (Auto) 0.0, Baso % (Auto) 0.2, Absolute Neuts (auto) 11.5 H, Absolute Lymphs (auto) 0.55 L, Nucleated RBC % 0, Differential Comment SCANNED 11/06/19 05:14: Sodium 135 L, Potassium 4.4, Chloride 103, Carbon Dioxide 26.0, Anion Gap 6, BUN 20 H, Creatinine 0.86, Estim Creat Clear Calc 52.96, Est GFR (MDRD) Af Amer 85, Est GFR (MDRD) Non-Af 71, BUN/Creatinine Ratio 23.2 H, Glucose 295 H, Calcium 8.3 L, Total Bilirubin 1.30 H, AST 18, ALT 11 L, Alkaline Phosphatase 79, Total Protein 7.0, Albumin 2.4 L, Globulin 4.6 H, Albumin/Globulin Ratio 0.5 L 11/06/19 08:03: POC Glucose 270 H 11/06/19 12:04: POC Glucose 331 H Current Medications Acetaminophen (Tylenol) 650 mg PO Q6H PRN PRN PRN Reason: Pain Score 1-3/Temp > 100.7 F Albuterol/Ipratropium (Duoneb) 3 ml INHALATION Q4HWA.RT [facility] Last Admin: 11/06/19 11:08 Dose: 3 ml Documented by: Enoxaparin Sodium (Lovenox) 40 mg SC DAILY [facility] Last Admin: 11/06/19 08:24 Dose: 40 mg Documented by: Furosemide (Lasix) 40 mg PO BIDLX [facility] Last Admin: 11/06/19 12:08 Dose: Not Given Documented by: Glucagon () 1 mg IM .X1 PRN PRN Reason: Hypoglycemia Dextrose (Dextrose 10%-Water) 250 mls @ 999 mls/hr IV X1 PRN; Protocol PRN Reason: HYPOGLYCEMIA Insulin Glargine (Lantus (Bkc)) 60 units SC BID [facility] Last Admin: 11/06/19 08:23 Dose: 60 unit Documented by: Insulin Human Lispro (Humalog Kwikpen (Bkc)) 15 unit SC 0800,1200,1700 [facility] Last Admin: 11/06/19 12:08 Dose: 15 units Documented by: Insulin Human Lispro (Humalog Kwikpen (Bk)) 0 unit SC ACHS [facility]; Protocol Last Admin: 11/06/19 12:08 Dose: 3 unit Documented by: Ondansetron HCl (Zofran) 4 mg IV Q8H PRN PRN PRN Reason: NAUSEA/VOMITING Last Admin: 11/06/19 02:47 Dose: 4 mg Documented by: Potassium Chloride (K-Dur) 10 meq PO BID [facility] Last Admin: 11/06/19 12:09 Dose: Not Given Documented by: Sodium Chloride () 10 - 40 ml IV UD PRN PRN Reason: SALINE FLUSH STROKE Vital Signs/Narrative: Vital Signs Temp Pulse Resp BP Pulse Ox 11/06/19 11:08 106 H 18 96 11/06/19 10:10 98.1 F 107 H 24 H 145/68 H 94 Medical Necessity - Tobacco Use Smoking Status: Former smoker Tobacco Use: Non-smoker Assessment/Plan All Active Problems (Last Reviewed 06/30/18 @ 13:32 by Natalia Pope) Sepsis (Acute) AALIYAH (obstructive sleep apnea) (Acute) Gastroenteritis (Acute) Dyspnea (Acute) Chest pain (Acute) Pseudohypontremia (Acute) Hyperglycemia (Acute) 1. Acute severe sepsis 2/2 gastroenteritis presumed viral, possibly viral URI - URI symptoms and acute onset of N/V/D. WBC improved. Nausea improved, stool more formed today. Enteric and viral panels are negative. 2. Hx systolic CHF and ischemic CM - continue home lasix. BNP pending. EF 20%. Has AICD. Trop neg. 3. Chronic hypoxic resp failure 2/2 COPD - doubt acute exacerbation. No increased SOB or wheezing. Continue home meds. 4. DMt2 with morbid obesity - adjusted home insulin + SSI. 5. Hx CAD, NSTEMI. Follows Dr. Chau. 6. AALIYAH - continue CPAP qhs. DVT ppx: lovenox DC planning: PTOT This patient was seen by Noe Cohen PA-C under the supervision of Dr. Grande <Sulaiman Grande - Last Filed: 11/06/19 13:09> Subjective: Feeling better. Vitals/I&O's: Vital Signs Temp Pulse Resp BP Pulse Ox 36.7 C 110 H 18 145/68 H 96 11/06/19 10:10 11/06/19 11:58 11/06/19 11:08 11/06/19 10:10 11/06/19 11:08 Oxygen Flow Rate (L/min) 4 Oxygen Delivery Method Nasal Cannula Weight: 163 kg Body Mass Index (BMI) 63.6 Intake and Output for Last 24 Hours 11/04/19 11/05/19 11/06/19 23:59 23:59 23:59 Intake Total 240 / 240 480 / 480 Output Total 300 / 300 Balance 240 / 240 180 / 180 General: Alert, Cooperative HEENT: Atraumatic, Normocephalic Neck: No Nodes, Trachea Midline Lungs: Clear to auscultation, Normal air movement, No rhonchi, No wheeze Cardiovascular: Regular rate, Regular Rhythm, Normal S1, Normal S2, No murmurs Abdomen: Bowel Sounds Present, Soft, Non Tender, Obese Extremities: No edema, No Calf Tenderness Skin: No rashes, No breakdown Psych/Mental Status: Normal Affect, Appropriate Microbiology Past 72 Hours 11/06/19 03:49 Stool Enteric Bacteriology - Final 11/05/19 19:55 Mucosa - Nose Respiratory Panel (PCR) - Final Laboratory Results 11/05/19 14:45: WBC 24.1 H, RBC 4.96, Hgb 14.9, Hct 46.3, MCV 93.3, MCH 30.0, MCHC 32.2, RDW Std Deviation 47.5 H, RDW Coeff of Tabby 13.9, Plt Count 222, MPV 11.4, Immature Gran % (Auto) 0.700, Neut % (Auto) 90.6 H, Lymph % (Auto) 3.4 L, [place] % (Auto) 4.9, Eos % (Auto) 0.0, Baso % (Auto) 0.4, Absolute Neuts (auto) 21.8 H, Absolute Lymphs (auto) 0.82 L, Nucleated RBC % 0, Differential Comment SCANNED 11/05/19 14:45: Sodium 137, Potassium 4.7, Chloride 102, Carbon Dioxide 29.0, Anion Gap 6, BUN 13, Creatinine 0.92, Estim Creat Clear Calc 51.78, Est GFR (MDRD) Af Amer 80, Est GFR (MDRD) Non-Af 66, BUN/Creatinine Ratio 14.2, Glucose 227 H, Calcium 8.9, Troponin I 0.015 11/05/19 14:45: B-Natriuretic Peptide 437.1 H 11/05/19 15:50: Urine Color Amg, Urine Clarity Turbid, Urine pH 5.0, Ur Specific Sebastian 1.025, Urine Protein 500 H, Urine Glucose (UA) 250 H, Urine Ketones 15 H, Urine Occult Blood 250 H, Urine Nitrite Positive H, Urine Bilirubin 1 H, Urine Urobilinogen 4 H, Ur Leukocyte Esterase 25 H, Urine RBC 10-25 SEEN, Urine WBC 0-5 SEEN, Ur Squamous Epith Cells 0-5 SEEN, Amorphous Sediment 1+ URATE, Urine Bacteria 2+, Urine Mucus 0 SEEN 11/05/19 16:00: Lactic Acid 3.1 H* 11/05/19 20:21: Lactic Acid 2.5 H* 11/05/19 21:39: POC Glucose 277 H 11/06/19 05:14: WBC 12.4 H, RBC 4.62, Hgb 13.5, Hct 42.7, MCV 92.4, MCH 29.2, MCHC 31.6 L, RDW Std Deviation 47.2 H, RDW Coeff of Tabby 14.0, Plt Count 167, MPV 11.5, Immature Gran % (Auto) 0.600, Neut % (Auto) 92.5 H, Lymph % (Auto) 4.4 L, [place] % (Auto) 2.3, Eos % (Auto) 0.0, Baso % (Auto) 0.2, Absolute Neuts (auto) 11.5 H, Absolute Lymphs (auto) 0.55 L, Nucleated RBC % 0, Differential Comment SCANNED 11/06/19 05:14: Sodium 135 L, Potassium 4.4, Chloride 103, Carbon Dioxide 26.0, Anion Gap 6, BUN 20 H, Creatinine 0.86, Estim Creat Clear Calc 52.96, Est GFR (MDRD) Af Amer 85, Est GFR (MDRD) Non-Af 71, BUN/Creatinine Ratio 23.2 H, Glucose 295 H, Calcium 8.3 L, Total Bilirubin 1.30 H, AST 18, ALT 11 L, Alkaline Phosphatase 79, Total Protein 7.0, Albumin 2.4 L, Globulin 4.6 H, Albumin/Globulin Ratio 0.5 L 11/06/19 08:03: POC Glucose 270 H 11/06/19 12:04: POC Glucose 331 H Current Medications Acetaminophen (Tylenol) 650 mg PO Q6H PRN PRN PRN Reason: Pain Score 1-3/Temp > 100.7 F Albuterol/Ipratropium (Duoneb) 3 ml INHALATION Q4HWA.RT [facility] Last Admin: 11/06/19 11:08 Dose: 3 ml Documented by: Enoxaparin Sodium (Lovenox) 40 mg SC DAILY [facility] Last Admin: 11/06/19 08:24 Dose: 40 mg Documented by: Furosemide (Lasix) 40 mg PO BIDLX [facility] Last Admin: 11/06/19 12:08 Dose: Not Given Documented by: Glucagon () 1 mg IM .X1 PRN PRN Reason: Hypoglycemia Dextrose (Dextrose 10%-Water) 250 mls @ 999 mls/hr IV X1 PRN; Protocol PRN Reason: HYPOGLYCEMIA Insulin Glargine (Lantus (Bkc)) 64 units SC BID [facility] Insulin Human Lispro (Humalog Kwikpen (Bk)) 15 unit SC 0800,1200,1700 [facility] Last Admin: 11/06/19 12:08 Dose: 15 units Documented by: Insulin Human Lispro (Humalog Kwikpen (Bkc)) 0 unit SC ACHS [facility]; Protocol Last Admin: 11/06/19 12:08 Dose: 3 unit Documented by: Ondansetron HCl (Zofran) 4 mg IV Q8H PRN PRN PRN Reason: NAUSEA/VOMITING Last Admin: 11/06/19 02:47 Dose: 4 mg Documented by: Potassium Chloride (K-Dur) 10 meq PO BID [facility] Last Admin: 11/06/19 12:09 Dose: Not Given Documented by: Sodium Chloride () 10 - 40 ml IV UD PRN PRN Reason: SALINE FLUSH STROKE Vital Signs/Narrative: Vital Signs Temp Pulse Resp BP Pulse Ox 11/06/19 11:58 110 H 11/06/19 11:08 106 H 18 96 11/06/19 10:10 36.7 C 107 H 24 H 145/68 H 94 Assessment/Plan Patient seen and examined independently. Data reviewed. I agree with the above note by the physician metallurgical laboratory assistant. 1. Severe sepsis 2/2 viral gastroenteritis improving 2. Viral gastroenteritis bacterial cultures negative 3. Chronic respiratory failure continue oxygen 4. Disposition: therapy evaluation. If well enough, could potentially DC to home 11/07/19. Code Visit Inpatient E&M: 40881 Subs Hosp L2
--- NOTE | 2019-11-06 13:53 | CASEMGMT ---
Social Work SW received a call from Jimmy at [facility] who states she has spoke with pt and has an appointment to meet at pt home on Friday 11/09 to discuss palliative option. CLARICE Valle
--- NOTE | 2019-11-06 16:49 | CHAPLAIN ---
Type of Pastoral Visit _x__ Initial Visit ___ Follow-up Visit ___ On-call Visit ___ General Patient Visit ___ Spiritual Assessment ___ Family Conference ___ Bereavement ___ Rapid Response ___ Code Blue ___ Other (describe below) Pastoral Care Referral From _x__ Patient ___ Family ___ Nurse ___ Physician ___ Wax Room Supervisor ___ Nuclear Plant Operator ___ Other (describe below) Sacrament/Intervention _x__ Active listening ___ Anointing ___ Jehovah'S Witness ___ Bereavement ___ Communion _x__ Thu exploration ___ _x__ Life review _x__ Prayer ___ Reconciliation ___ Sacrament of Sick ___ Supportive presence ___ Wedding ___ Other (describe below) Pastoral Comments
[2019-11-06] MEDS: Furosemide 40 MG Tablet PO (16:51)
[2019-11-06 17:05] LABS: Bedside Glucose 254 mg/dL (70-110)
[2019-11-06 22:20] LABS: Bedside Glucose 233 mg/dL (70-110)
[2019-11-07] VITALS (16 sets, daily range): BP systolic 113–135; BP diastolic 68–84; PULSE 99–123; RESP 16–20; TEMP 36.4–36.7; O2SAT 92–96
[2019-11-07] MEDS: Ipratropium/Albuterol Sulfate 3 ML AMPUL.NEB INHALATION ×4 (06:45→19:26)
[2019-11-07] MEDS: Insulin Lispro 100 UNIT/ML INSULN.PEN SC ×3 (08:29→17:28)
[2019-11-07] MEDS: Insulin Lispro 100 UNIT/ML INSULN.PEN 15 UNIT SC ×3 (08:30→17:27)
[2019-11-07 10:56] LABS: Bedside Glucose 232 mg/dL (70-110)
[2019-11-07 11:20] LABS: Bedside Glucose 291 mg/dL (70-110)
--- NOTE | 2019-11-07 13:35 | PCM.PN.HOSP ---
<Noe Cohen - Last Filed: 11/07/19 13:35> Patient Problems: Active and Suspected Problems (Last Reviewed 06/30/18 @ 13:32 by Natalia Pope) Sepsis (Acute) AALIYAH (obstructive sleep apnea) (Acute) Gastroenteritis (Acute) Subjective: Vtach on the monitor, no chest pain, palpitations, dizziness/LH. No nausea/vomtiting/diarrhea. No fever/chills. Vitals/I&O's: Vital Signs Temp Pulse Resp BP Pulse Ox 98.0 F 112 H 16 124/84 H 94 11/07/19 08:18 11/07/19 11:27 11/07/19 11:03 11/07/19 08:18 11/07/19 08:18 Oxygen Flow Rate (L/min) 3 Oxygen Delivery Method Nasal Cannula Weight: 360 lb 3.765 oz Body Mass Index (BMI) 63.6 Intake and Output for Last 24 Hours 11/05/19 11/06/19 11/07/19 23:59 23:59 23:59 Intake Total 240 / 240 1130 / 1130 Output Total 300 / 300 Balance 240 / 240 830 / 830 General: Alert, Oriented x3, Cooperative HEENT: Atraumatic, PERRLA, EOMI, Normocephalic Neck: Supple, No JVD, Negative Carotid Bruits Lungs: Clear to auscultation, Normal air movement Cardiovascular: Regular rate, No murmurs, Irregular Rate Abdomen: Bowel Sounds Present, Soft, Non Tender Extremities: No edema, Capillary Refill Less than 3 Seconds Skin: No rashes, No breakdown Musculoskeletal: No Tenderness to Palpation of Joints or Extremities Neurological: Cranial nerves II-XII grossly intact Psych/Mental Status: Normal Affect, Appropriate Microbiology Past 72 Hours 11/05/19 15:50 Urine Catheter - Catheter Urine Culture - Preliminary Culture exhibits no growth. 11/06/19 03:49 Stool Enteric Bacteriology - Final 11/05/19 19:55 Mucosa - Nose Respiratory Panel (PCR) - Final Laboratory Results 11/06/19 16:48: POC Glucose 254 H 11/06/19 22:07: POC Glucose 233 H 11/07/19 08:16: POC Glucose 232 H 11/07/19 11:11: POC Glucose 291 H 11/07/19 11:49: Magnesium 2.0 Current Medications Acetaminophen (Tylenol) 650 mg PO Q6H PRN PRN PRN Reason: Pain Score 1-3/Temp > 100.7 F Albuterol/Ipratropium (Duoneb) 3 ml INHALATION Q4HWA.RT [facility] Last Admin: 11/07/19 11:03 Dose: 3 ml Documented by: Enoxaparin Sodium (Lovenox) 40 mg SC DAILY [facility] Last Admin: 11/07/19 08:34 Dose: Not Given Documented by: Furosemide (Lasix) 40 mg PO BIDLX [facility] Last Admin: 11/07/19 08:28 Dose: Not Given Documented by: Glucagon () 1 mg IM .X1 PRN PRN Reason: Hypoglycemia Dextrose (Dextrose 10%-Water) 250 mls @ 999 mls/hr IV X1 PRN; Protocol PRN Reason: HYPOGLYCEMIA Insulin Glargine (Lantus (Bkc)) 64 units SC BID [facility] Last Admin: 11/07/19 08:30 Dose: 64 u Documented by: Insulin Human Lispro (Humalog Kwikpen (Bkc)) 15 unit SC 0800,1200,1700 [facility] Last Admin: 11/07/19 11:14 Dose: 15 units Documented by: Insulin Human Lispro (Humalog Kwikpen (Bkc)) 0 unit SC ACHS [facility]; Protocol Last Admin: 11/07/19 11:15 Dose: 2 unit Documented by: Ondansetron HCl (Zofran) 4 mg IV Q8H PRN PRN PRN Reason: NAUSEA/VOMITING Last Admin: 11/06/19 02:47 Dose: 4 mg Documented by: Potassium Chloride (K-Dur) 10 meq PO BID [facility] Last Admin: 11/07/19 08:28 Dose: Not Given Documented by: Sodium Chloride () 10 - 40 ml IV UD PRN PRN Reason: SALINE FLUSH STROKE Vital Signs/Narrative: Vital Signs Pulse Resp 11/07/19 11:27 112 H 11/07/19 11:10 114 H 11/07/19 11:03 108 H 16 Medical Necessity - Tobacco Use Smoking Status: Former smoker Tobacco Use: Non-smoker Assessment/Plan All Active Problems (Last Reviewed 06/30/18 @ 13:32 by Natalia Pope) Sepsis (Acute) AALIYAH (obstructive sleep apnea) (Acute) Gastroenteritis (Acute) Dyspnea (Acute) Chest pain (Acute) Pseudohypontremia (Acute) Hyperglycemia (Acute) 1. Acute severe sepsis 2/2 gastroenteritis presumed viral, possibly viral URI - resolved. 2. Nonsustained vtach - monitor overnight - has AICD. Start low dose metoprolol. persistent tachy. Mag normal. 3. Hx systolic CHF and ischemic CM - continue home lasix. BNP pending. EF 20%. Has AICD. Trop neg. 4. Chronic hypoxic resp failure 2/2 COPD - doubt acute exacerbation. No increased SOB or wheezing. Continue home meds. 5. DMt2 with morbid obesity - adjusted home insulin + SSI. 6. Hx CAD, NSTEMI, ischemic cardiomyopathy. Follows Dr. Chau. 7. AALIYAH - continue CPAP qhs. DVT ppx: lovenox DC planning: PTOT. Follow tele. This patient was seen by Noe Cohen PA-C under the supervision of Dr. Montoya <La Montoya - Last Filed: 11/07/19 15:07> Vitals/I&O's: Vital Signs Temp Pulse Resp BP Pulse Ox 97.8 F 111 H 16 129/84 H 96 11/07/19 14:13 11/07/19 14:13 11/07/19 14:13 11/07/19 14:13 11/07/19 14:13 Oxygen Flow Rate (L/min) 3 Oxygen Delivery Method CPAP Weight: 360 lb 3.765 oz Body Mass Index (BMI) 63.6 Intake and Output for Last 24 Hours 11/05/19 11/06/19 11/07/19 23:59 23:59 23:59 Intake Total 240 / 240 1130 / 1130 440 / 440 Output Total 300 / 300 Balance 240 / 240 830 / 830 440 / 440 Microbiology Past 72 Hours 11/05/19 15:50 Urine Catheter - Catheter Urine Culture - Preliminary Culture exhibits no growth. 11/06/19 03:49 Stool Enteric Bacteriology - Final 11/05/19 19:55 Mucosa - Nose Respiratory Panel (PCR) - Final Laboratory Results 11/06/19 16:48: POC Glucose 254 H 11/06/19 22:07: POC Glucose 233 H 11/07/19 08:16: POC Glucose 232 H 11/07/19 11:11: POC Glucose 291 H 11/07/19 11:49: Magnesium 2.0 11/07/19 11:49: TSH 3.05 Current Medications Acetaminophen (Tylenol) 650 mg PO Q6H PRN PRN PRN Reason: Pain Score 1-3/Temp > 100.7 F Albuterol/Ipratropium (Duoneb) 3 ml INHALATION Q4HWA.RT [facility] Last Admin: 11/07/19 11:03 Dose: 3 ml Documented by: Enoxaparin Sodium (Lovenox) 40 mg SC DAILY [facility] Last Admin: 11/07/19 08:34 Dose: Not Given Documented by: Furosemide (Lasix) 40 mg PO BIDLX [facility] Last Admin: 11/07/19 08:28 Dose: Not Given Documented by: Glucagon () 1 mg IM .X1 PRN PRN Reason: Hypoglycemia Dextrose (Dextrose 10%-Water) 250 mls @ 999 mls/hr IV X1 PRN; Protocol PRN Reason: HYPOGLYCEMIA Insulin Glargine (Lantus (Bkc)) 64 units SC BID [facility] Last Admin: 11/07/19 08:30 Dose: 64 u Documented by: Insulin Human Lispro (Humalog Kwikpen (Bkc)) 15 unit SC 0800,1200,1700 [facility] Last Admin: 11/07/19 11:14 Dose: 15 units Documented by: Insulin Human Lispro (Humalog Kwikpen (Bkc)) 0 unit SC ACHS [facility]; Protocol Last Admin: 11/07/19 11:15 Dose: 2 unit Documented by: Metoprolol Tartrate (Lopressor (Beta Paloma)) 12.5 mg PO BID [facility] Ondansetron HCl (Zofran) 4 mg IV Q8H PRN PRN PRN Reason: NAUSEA/VOMITING Last Admin: 11/06/19 02:47 Dose: 4 mg Documented by: Potassium Chloride (K-Dur) 10 meq PO BID [facility] Last Admin: 11/07/19 08:28 Dose: Not Given Documented by: Sodium Chloride () 10 - 40 ml IV UD PRN PRN Reason: SALINE FLUSH STROKE Vital Signs/Narrative: Vital Signs Temp Pulse Resp BP Pulse Ox 11/07/19 14:13 97.8 F 111 H 16 129/84 H 96 11/07/19 11:27 112 H 11/07/19 11:10 114 H 11/07/19 11:03 108 H 16 Assessment/Plan Patient seen by Noe Cohen PA-C under my supervision Patient seen and examined today. She has no complaints and feels well. Patient wanted to be discharged as diarrhea had resolved. Review of symptoms otherwise negative. Plan was to discharge patient; however just prior to discharge, patient was noted to have an 8 beat run of V. tach per telemetry. Patient does have an ICD in place she states that is due to be interrogated next week. Magnesium checked was normal. Review of systems otherwise negative. Labs and vitals reviewed. o/e: Vital Signs Height 5 ft 2.99 in Weight: 360 lb 3.765 oz Weight in Pounds 360.2 lbs Pulse Ox 96 Temperature 97.8 F Pulse Rate 111 Respiratory Rate 16 Blood Pressure 129/84 Blood Pressure Position Semi-Fowlers General: Alert, Oriented x3, Cooperative HEENT: Atraumatic, PERRLA, EOMI, Normocephalic Neck: Supple, No JVD, Negative Carotid Bruits Lungs: Clear to auscultation, Normal air movement Cardiovascular: tachycardic, No murmurs, Irregular Rate Abdomen: Bowel Sounds Present, Soft, Non Tender Extremities: No edema, Capillary Refill Less than 3 Seconds Skin: No rashes, No breakdown Musculoskeletal: No Tenderness to Palpation of Joints or Extremities Neurological: Cranial nerves II-XII grossly intact Psych/Mental Status: Normal Affect, Appropriate Plan is to consult cardiology on account of patient having nonsustained V. tach in her having an AICD in place which is due for interrogation. Maintain potassium at 4 and above and magnesium at 2 and above. Last echo done in July 2019 showed EF of 20% with severe segmental systolic dysfunction and moderately enlarged left atrium and mildly enlarged right atrium. Of note, patient has been tachycardic since admission with heart rate been in the 110s to 120s, appears to be in sinus rhythm. Cardiology consulted. Rest of management as per the Vicki PRADHAN's notes which I reviewed and endorsed. Code Visit Inpatient E&M: 05229 Subs Hosp L2
[2019-11-07 14:19] LABS: Thyroid Stim Hormone (TSH) 3.05 uIU/mL (0.358-3.74)
--- NOTE | 2019-11-07 14:23 | NURSING ---
Patient wants to read over information regarding Metoprolol before she takes medication. Information provided.
--- NOTE | 2019-11-07 16:35 | EKG12_ITS ---
Test Reason : CP Blood Pressure : / mmHG Vent. Rate : 110 BPM Atrial Rate : 110 BPM P-R Int : 134 ms QRS Dur : 126 ms QT Int : 364 ms P-R-T Axes : 050 -57 089 degrees QTc Int : 492 ms Sinus tachycardia Left axis deviation Non-specific intra-ventricular conduction block Abnormal ECG No previous ECGs available Confirmed by SAHRA THOMPSON, CHASIDY ([id number]), assignment desk editor LIBBY JORGE ([id number]) on 11/16/2019 1:00:12 PM Referred By: DEIDRE Confirmed By:BERNA BOCANEGRA MD
[2019-11-07 17:01] LABS: Bedside Glucose 203 mg/dL (70-110)
[2019-11-07] MEDS: Metoprolol Tartrate 25 MG Tablet 12.5 MG PO (17:27)
[2019-11-07] MEDS: Acetaminophen 325 MG Tablet 650 MG PO (22:50)
[2019-11-08] VITALS (13 sets, daily range): BP systolic 100–143; BP diastolic 67–86; PULSE 91–102; RESP 16–20; TEMP 36.5–36.8; O2SAT 82–98
[2019-11-08 01:06] LABS: Bedside Glucose 127 mg/dL (70-110)
[2019-11-08] MEDS: Ipratropium/Albuterol Sulfate 3 ML AMPUL.NEB INHALATION ×3 (02:22→10:56)
[2019-11-08] MEDS: Furosemide 40 MG Tablet PO ×2 (05:28→11:43)
[2019-11-08] MEDS: 0.9% Saline Lock 10 ML Syringe IV ×2 (05:28→06:25)
[2019-11-08] MEDS: Ondansetron 4 MG/2 ML Vial IV (06:24)
[2019-11-08 07:34] LABS: Anion Gap 7 (5-15); BUN 28 mg/dL (7-18); Calcium,Total 8.9 mg/dL (8.5-10.1); Chloride 102 mmol/L (98-107); Creatinine, Serum 0.78 mg/dL (0.55-1.02); EST Glomerular Filtration Rate 80 mL/min (>60); Est Glom Filt Rate - Afr Amer 96 mL/min (>60); Estimated Creatinine Clearance 58.39 ml/min; Glucose 88 mg/dL (74-106); Potassium 4.8 mmol/L (3.5-5.1); Sodium Level 135 mmol/L (136-145)
[2019-11-08 08:06] LABS: Bedside Glucose 98 mg/dL (70-110)
[2019-11-08] MEDS: Metoprolol Tartrate 25 MG Tablet 12.5 MG PO (08:29)
--- NOTE | 2019-11-08 10:14 | PCM.CONS.C ---
Problem List (1) Atherosclerotic heart disease of [place] coronary artery without angina pectoris Status: Chronic Qualifiers: [place] vs. transplanted heart: [place] heart Qualified Code(s): I25.10 - Atherosclerotic heart disease of [place] coronary artery without angina pectoris (2) Automatic implantable cardiac defibrillator in situ Status: Chronic Comment: Implant: 04/12/[address] Riley (3) Old myocardial infarction Status: Chronic (4) Acute on chronic systolic CHF (congestive heart failure) Status: Chronic (5) NSTEMI (non-ST elevated myocardial infarction) Status: Chronic Comment: Cardiac catheterization 04/2014 w/ normal left main coronary artery, totally occluded left anterior descending at the ostium, left circumflex artery without disease, dominant right coronary artery with no significant disease, severe left ventricular systolic dysfunction with anterior kinesis with EF estimated 25%. Thamllium redistribution study 05/13/14 to assess viability performed, demonstrating large area of infarct involving the anterior wall apex and part of the lateral wall (medical therapy only). (6) Systolic CHF Status: Chronic Comment: EF 25% 04/2014 (7) History of tobacco use Status: Chronic (8) Cardiomyopathy, ischemic Status: Chronic (9) CAD (coronary artery disease) Status: Chronic Qualifiers: Reason for Consult Date of Consultation: 11/08/19 Reason for Consultation: Nonsustained ventricular tachycardia, ischemic cardiomyopathy, status post AICD, hypertension, LV dysfunction History of Present Illness: The patient is a 64 year old F, patient of Dr. Gonzalez, with a history of ischemic cardiomyopathy status post catheterization in 2013 at which time she was found to have an occluded LAD, nonobstructive disease of her left circumflex and dominant right coronary artery. Her LVEF was 25% at that time, and a viability study was performed which demonstrated no anterior viability. She then underwent successful AICD placement by Dr. Britt on 04/12/2016. Patient denies any chest pain, angina, and apparently was admitted with recently acquired cough, congestion, and diarrhea. While she was admitted she had an 8 beat run of nonsustained ventricular tachycardia. The patient admitted to discontinuing her beta-adrianna at home and this was restarted in the hospital. She denies any defibrillator discharges, warnings, presyncope or syncope. The patient has significant obstructive sleep apnea sometimes requiring her to use her CPAP therapy while sitting in a chair leaning on a table. She has not had a repeat catheterization since 2013. She was to have her defibrillator interrogated this upcoming Saturday by Bettye in our office. Unfortunately patient is unable to take BRADY inhibitor or statin based therapy. Opponent negative x1. [] Past Medical History Allergies/Adverse Reactions: Allergies BRADY Inhibitors Allergy (Verified 11/05/19 14:09) unknown codeine Allergy (Verified 11/05/19 14:09) Hives lisinopril Allergy (Verified 11/05/19 14:09) Unknown metformin Allergy (Verified 11/05/19 14:09) Unknown Ieuxmal-Mwq-Ctz Reductase Inhibitor Allergy (Verified 11/05/19 14:09) Unknown Home Medications: Ambulatory Orders Medication Instructions Recorded insulin aspart (U-100) 100 unit/mL 15 unit SC TIDCM 06/18/18 (3 mL) subcutaneous pen insulin glargine (U-100) 100 60 unit SC BID ml 06/18/18 unit/mL subcutaneous solution albuterol sulfate HFA 90 1 puff INHALATION Q6H PRN PRN 07/28/19 mcg/actuation aerosol inhaler furosemide 40 mg tablet 40 mg PO BID tab 08/11/19 potassium chloride ER 10 mEq 10 meq PO BID #180 cap 08/11/19 capsule,extended release Cetirizine HCl [Zyrtec] 10 mg PO DAILY 11/05/19 Ibuprofen 600 mg PO DAILY PRN PRN 11/05/19 Past Medical History (Chronic Problems): Chronic Problems (Last Reviewed 06/30/18 @ 13:32 by Natalia Pope) Chronic respiratory failure with hypoxia (Chronic) Atherosclerotic heart disease of [place] coronary artery without angina pectoris (Chronic) Automatic implantable cardiac defibrillator in situ (Chronic) Implant: 04/12/[address] 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 Thamllium redistribution study 05/13/14 to assess viability performed, demonstrating large area of infarct involving the anterior wall apex and part of the lateral wall (medical therapy only). Systolic CHF (Chronic) EF 25% 04/2014 History of tobacco use (Chronic) Diabetes mellitus, type II (Chronic) Asthma (Chronic) Allergic rhinitis (Chronic) Hyperlipidemia (Chronic) Hyponatremia (Chronic) Cardiomyopathy, ischemic (Chronic) CAD (coronary artery disease) (Chronic) Morbid obesity with BMI of 40.0-44.9, adult (Chronic) Surgical History: - - R thigh wound debridments, Cholecystectomy, Cardiac catheterization. Psychiatric History: No pertinent psych hx ASSURANCE AUDITOR History: No pertinent ASSURANCE AUDITOR history - *Family History Maternal Family History: Family History (Last Reviewed 11/05/19 @ 18:07 by NAGI Willett) Mother CAD (coronary artery disease) CHF (congestive heart failure) Diabetes COPD (chronic obstructive pulmonary disease) Father CAD (coronary artery disease) Brother CAD (coronary artery disease) Diabetes Brother Diabetes Sister CAD (coronary artery disease) Thyroid disorder History Items: Diabetes, Heart Disease Paternal Family History: Family History (Last Reviewed 11/05/19 @ 18:07 by NAGI Willett) Mother CAD (coronary artery disease) CHF (congestive heart failure) Diabetes COPD (chronic obstructive pulmonary disease) Father CAD (coronary artery disease) Brother CAD (coronary artery disease) Diabetes Brother Diabetes Sister CAD (coronary artery disease) Thyroid disorder History Items: Heart Disease Lives: Alone Smoking Status: Former smoker Tobacco Use: Non-smoker Alcohol: None Drugs: None Review of Systems - Review of Systems General: Denies: Fever, Night Sweats, Fatigue Cardiovascular: Denies: Chest Discomfort, Shortness of Breath, Orthopnea, PND, Peripheral Edema, Palpitations, Lightheadedness, Dizziness, Near Syncope, Syncope Respiratory: Reports: Cough. Denies: Sputum Production, Hemoptysis Gastrointestinal: Reports: Diarrhea. Denies: Hematemesis, Hematochezia, Melena Genitourinary: Denies: Dysuria, Hematuria Skin: Denies: Rash Subjectve: Patient sitting in a chair, no acute distress. Objective: Vital Signs Temp Pulse Resp BP Pulse Ox 98.1 F 98 18 124/84 H 97 11/08/19 08:11 11/08/19 08:29 11/08/19 08:11 11/08/19 08:11 11/08/19 08:11 Oxygen Flow Rate (L/min) 3 Oxygen Delivery Method Nasal Cannula Weight: 360 lb 3.765 oz Body Mass Index (BMI) 63.6 Intake and Output for Last 24 Hours 11/06/19 11/07/19 11/08/19 23:59 23:59 23:59 Intake Total 1130 / 1130 1300 / 1300 190 / 190 Output Total 300 / 300 Balance 830 / 830 1300 / 1300 190 / 190 General: Awake, Alert, Oriented x 3 HEENT: PERRL, EOMI, Sclera Non Icteric Neck: Supple, Good ROM, No Lymph Node Enlargement Lungs: Clear to auscultation Cardiovascular: Regular Rhythm, Normal S1, Normal S2, No Murmurs, No Rubs, No Gallops Vascular: No Carotid Bruits, Normal Femoral Pulses, Normal Radial Pulses, Normal Dorsalis Pedal Pulse, Normal Posterior Tibial Pulses Abdomen: Bowel Sounds Present, Soft, Non Tender, No HSM, No Organomegaly Extremities: No Cyanosis, No Clubbing, No edema Neurological: No Focal Motor or Sensory Deficit 11/07/19 11:49: Magnesium 2.0 11/08/19 06:04: Sodium 135 L, Potassium 4.8, Chloride 102, Carbon Dioxide 26.0, Anion Gap 7, BUN 28 H, Creatinine 0.78, Est GFR (MDRD) Af Amer 96, Est GFR (MDRD) Non-Af 80, BUN/Creatinine Ratio 36.0 H, Glucose 88, Calcium 8.9 Rhythm: EKG: Normal sinus rhythm, left anterior hemiblock, no acute changes. ECHO: Stress Test: Cardiac Cath: PCI: CT Surgery: Holter monitor: EPS: PPM: CXR: Chest CT Scan: Assessment/Plan 1. Ischemic cardiomyopathy: The patient had a single asymptomatic 8 beat run of nonsustained ventricular tachycardia superimposed on what appears to be an upper respiratory tract infection and GI illness. Patient also discontinued her beta-adrianna in the recent past as it did not agree with her and made her feel tired and occasionally dizzy. She has had no defibrillator discharges or chest pain or anginal symptoms. Her troponin is negative x1. Patient has a known history of severe LV dysfunction with an EF of 25% and is status post defibrillator placement in 2016. At this point I recommend restarting the patient on a beta-adrianna and in this case metoprolol 12.5 mg p.o. twice daily. This was started yesterday, the patient feels much better with it. I would not recommend repeat echocardiogram or stress test at this time. She has a known occluded LAD with a viability study that showed no viability in the anterior wall. The patient has an appointment to see Bettye in our office for a defibrillator checkup this upcoming Saturday. I recommend supportive care for her diarrhea. If the patient develops recurrent nonsustained ventricular tachycardia despite beta-adrianna therapy, she may require either repeat stress test or repeat catheterization to determine if she has had progression of her coronary disease since her catheterization in 2013. Unfortunately patient is unable to take BRADY inhibitor or statin based medications. The patient may be a candidate for Imdur/hydralazine when she recovers from her GI illness. Would not recommend starting this at this time until she has recovered from her illness. 2. Discuss[address] with Dr[address] Montoya. Patient may be discharged home and follow-up with Dr. Corbett going forward. Code Visit Inpatient E&M: 14485 Init Hosp L2
--- NOTE | 2019-11-08 11:07 | DCINST_ITS ---
- Discharge Diagnoses Current Active Problems: Current Active and Chronic Problems (Last Reviewed 06/30/18 @ 13:32 by Natalia Pope) Sepsis (Acute) AALIYAH (obstructive sleep apnea) (Acute) Gastroenteritis (Acute) Chronic respiratory failure with hypoxia (Chronic) You will use the following diet at home:: Calorie/Carbohydrate Controlled (specify 1200, 1400, etc) - 1800 nicolas / day, Cardiac Your food should be the consistency of: Regular Discharge Activity: Return to Normal Activity Allergies/Adverse Reactions: Allergies BRADY Inhibitors Allergy (Verified 11/05/19 14:09) unknown codeine Allergy (Verified 11/05/19 14:09) Hives lisinopril Allergy (Verified 11/05/19 14:09) Unknown metformin Allergy (Verified 11/05/19 14:09) Unknown Rfezfdc-Sck-Adl Reductase Inhibitor Allergy (Verified 11/05/19 14:09) Unknown Medications to take at Discharge insulin aspart (U-100) 100 unit/mL (3 mL) subcutaneous pen 15 unit SC TIDCM 06/18/18 insulin glargine (U-100) 100 unit/mL subcutaneous solution 60 unit SC BID ml 0 06/18/18 albuterol sulfate HFA 90 mcg/actuation aerosol inhaler 1 puff INHALATION Q6H PRN PRN 07/28/19 furosemide 40 mg tablet 40 mg PO BID tab 08/11/19 potassium chloride ER 10 mEq capsule,extended release 10 meq PO BID #180 cap 08/11/19 Cetirizine HCl [Zyrtec] 10 mg PO DAILY 11/05/19 Acetaminophen [Tylenol Tablet] 650 mg PO Q6H PRN PRN tablet 11/08/19 Metoprolol Tartrate [Lopressor (beta adrianna)] 12.5 mg PO BID #30 tab 11/08/19 The following prescriptions were given: Metoprolol Tartrate [Lopressor (beta adrianna)] 12.5 mg PO BID #30 tab Transmission Status: Pending to [facility] Primary Care Physician: Eneida Betancourt NP-C [Primary Care Provider] - Please follow up with your Primary Care Physician in: 1-2 weeks Test Results: Test results from this visit will be discussed in further detail at your follow- up appointment, if applicable. Please Follow Up With: Pacer/ICD clinic When: 2 days Please Follow Up With: Triston Chau MD When: 2 weeks Proposed Discharge Date: 11/08/19
--- NOTE | 2019-11-08 11:20 | PCA ---
Spoke with organizational development director nurse Taco on the phone and notified her of D/C. Paperwork faxed over to to [facility].
--- NOTE | 2019-11-08 11:42 | PCM.DC.SUM ---
<Noe Cohen - Last Filed: 11/08/19 11:42> Discharge Date and Diagnosis - Problem List Patient Problems: Active and Suspected Problems (Last Reviewed 06/30/18 @ 13:32 by Natalia Pope) Sepsis (Acute) AALIYAH (obstructive sleep apnea) (Acute) Gastroenteritis (Acute) Date of Admission: 11/05/19 Date of Discharge: 11/08/19 - Primary Discharge Diagnosis Active and Suspected Problems (Last Reviewed 06/30/18 @ 13:32 by Natalia Pope) Sepsis (Acute) 2/2 Gastroenteritis, viral Nonsustained Vtach hx ischemic CM, CAD, systolic CHF, AICD AALIYAH DMt2 Morbid obesity HTN HLD COPD with chronic hypoxic respiratory failure - Secondary Discharge Diagnosis Chronic Problems (Last Reviewed 06/30/18 @ 13:32 by Natalia Pope) Chronic respiratory failure with hypoxia (Chronic) Atherosclerotic heart disease of [place] coronary artery without angina pectoris (Chronic) Automatic implantable cardiac defibrillator in situ (Chronic) Implant: 04/12/[address] Riley Old myocardial infarction (Chronic) Family history of premature coronary heart disease (Chronic) Male < 55 Other alf (current) drug therapy (Chronic) Acute on chronic systolic CHF (congestive heart failure) (Chronic) NSTEMI (non-ST elevated myocardial infarction) (Chronic) Cardiac catheterization 04/2014 w/ normal left main coronary artery, totally occluded left anterior descending at the ostium, left circumflex artery without disease, dominant right coronary artery with no significant disease, severe left ventricular systolic dysfunction with anterior kinesis with EF estimated 25%. Thamllium redistribution study 05/13/14 to assess viability performed, demonstrating large area of infarct involving the anterior wall apex and part of the lateral wall (medical therapy only). Systolic CHF (Chronic) EF 25% 04/2014 History of tobacco use (Chronic) Diabetes mellitus, type II (Chronic) Asthma (Chronic) Allergic rhinitis (Chronic) Hyperlipidemia (Chronic) Hyponatremia (Chronic) Cardiomyopathy, ischemic (Chronic) CAD (coronary artery disease) (Chronic) Morbid obesity with BMI of 40.0-44.9, adult (Chronic) Hospital Course and Treatment Imaging Results: RAD/Chest 1 View (Portable) IMPRESSION: Cardiomegaly and CHF. Consults: Aric/Haile - cardiology Operations: None Procedures: None Summary of Care Provided: Hospital Course: The patient is a 64 year old F with pmhx as above who presented to the ER with intractable nausea and vomiting and diarrhea. She appeared to have acute severe sepsis with WBC 24k, LA of 3/1. temp 96.0 and tachycardia/tachypnea. She was admitted to the PCU on tele. She was treated with supportive care and her N/V/Diarrea resolved over two days. She developed an episode of nonsustained vtach while here. She had been off of her coreg at home. Cardiology was consulted. She was started on metoprolol. She had no further episodes after this. She has an AICD check in 2 days and will need to be sure to have this done, and will need follow up with her primary senior functional analyst in 2 weeks. She had a recent echo 07/2019 so a repeat was deferred. She will need to see her PCP in 1-2 weeks. She was discharged home in stable condition. This patient was seen by Noe Cohen PA-C under the supervision of Dr. Montoya. [] Patient Problems: Active and Suspected Problems (Last Reviewed 06/30/18 @ 13:32 by Natalia Pope) Sepsis (Acute) AALIYAH (obstructive sleep apnea) (Acute) Gastroenteritis (Acute) - Physical Exam Vitals/I&O's: Vital Signs Temp Pulse Resp BP Pulse Ox 98.1 F 93 16 124/84 H 97 11/08/19 08:11 11/08/19 11:13 11/08/19 10:56 11/08/19 08:11 11/08/19 08:11 Oxygen Flow Rate (L/min) 3 Oxygen Delivery Method Nasal Cannula Weight: 360 lb 3.765 oz Body Mass Index (BMI) 63.6 Intake and Output for Last 24 Hours 11/06/19 11/07/19 11/08/19 23:59 23:59 23:59 Intake Total 1130 / 1130 1300 / 1300 190 / 190 Output Total 300 / 300 Balance 830 / 830 1300 / 1300 190 / 190 General: Alert, Oriented x3, Cooperative HEENT: Atraumatic, PERRLA, EOMI, Normocephalic Neck: Supple, No JVD, Negative Carotid Bruits Lungs: Clear to auscultation, Normal air movement Cardiovascular: Regular rate, No murmurs Abdomen: Bowel Sounds Present, Soft, Non Tender, Obese Extremities: No edema, Capillary Refill Less than 3 Seconds Skin: No rashes, No breakdown Musculoskeletal: No Tenderness to Palpation of Joints or Extremities Neurological: Cranial nerves II-XII grossly intact Psych/Mental Status: Normal Affect, Appropriate Microbiology Past 72 Hours 11/05/19 16:14 Blood Culture (Wb) - Right Forearm Blood Culture - Preliminary No growth in 48 hours. 11/05/19 16:00 Blood Culture (Wb) - Left Forearm Blood Culture - Preliminary No growth in 48 hours. 11/05/19 15:50 Urine Catheter - Catheter Urine Culture - Final Culture exhibits no growth. 11/06/19 03:49 Stool Enteric Bacteriology - Final 11/05/19 19:55 Mucosa - Nose Respiratory Panel (PCR) - Final Laboratory Results 11/07/19 11:49: Magnesium 2.0 11/07/19 11:49: TSH 3.05 11/07/19 16:56: POC Glucose 203 H 11/07/19 22:30: POC Glucose 127 H 11/08/19 06:04: Sodium 135 L, Potassium 4.8, Chloride 102, Carbon Dioxide 26.0, Anion Gap 7, BUN 28 H, Creatinine 0.78, Estim Creat Clear Calc 58.39, Est GFR (MDRD) Af Amer 96, Est GFR (MDRD) Non-Af 80, BUN/Creatinine Ratio 36.0 H, Glucose 88, Calcium 8.9 11/08/19 07:59: POC Glucose 98 Current Medications Acetaminophen (Tylenol) 650 mg PO Q6H PRN PRN PRN Reason: Pain Score 1-3/Temp > 100.7 F Last Admin: 11/07/19 22:50 Dose: 650 mg Documented by: Albuterol/Ipratropium (Duoneb) 3 ml INHALATION Q4HWA.RT PACO Last Admin: 11/08/19 10:56 Dose: 3 ml Documented by: Enoxaparin Sodium (Lovenox) 40 mg SC DAILY [facility] Last Admin: 11/08/19 08:10 Dose: Not Given Documented by: Furosemide (Lasix) 40 mg PO BID@0600,1200 [facility] Last Admin: 11/08/19 05:28 Dose: 40 mg Documented by: Glucagon () 1 mg IM .X1 PRN PRN Reason: Hypoglycemia Dextrose (Dextrose 10%-Water) 250 mls @ 999 mls/hr IV X1 PRN; Protocol PRN Reason: HYPOGLYCEMIA Insulin Glargine (Lantus (Bk)) 64 units SC BID [facility] Last Admin: 11/08/19 08:28 Dose: Not Given Documented by: Insulin Human Lispro (Humalog Kwikpen (Bkc)) 15 unit SC 0800,1200,1700 [facility] Last Admin: 11/08/19 08:09 Dose: Not Given Documented by: Insulin Human Lispro (Humalog Kwikpen (Bk)) 0 unit SC ACHS [facility]; Protocol Last Admin: 11/08/19 08:09 Dose: Not Given Documented by: Metoprolol Tartrate (Lopressor (Beta Paloma)) 12.5 mg PO BID [facility] Last Admin: 11/08/19 08:29 Dose: 12.5 mg Documented by: Ondansetron HCl (Zofran) 4 mg IV Q8H PRN PRN PRN Reason: NAUSEA/VOMITING Last Admin: 11/08/19 06:24 Dose: 4 mg Documented by: Potassium Chloride (K-Dur) 10 meq PO BID [facility] Last Admin: 11/08/19 08:28 Dose: 10 meq Documented by: Sodium Chloride () 10 - 40 ml IV UD PRN PRN Reason: SALINE FLUSH Last Admin: 11/08/19 06:25 Dose: 20 ml Documented by: Discharge Diet: Low fat/ Low Cholesterol, 1800 Calorie Control Diet, 2000 mg Sodium Diet Discharge Activity: Return to Normal Activity Home Medications: Medications to take at Discharge insulin aspart (U-100) 100 unit/mL (3 mL) subcutaneous pen 15 unit SC TIDCM 06/18/18 insulin glargine (U-100) 100 unit/mL subcutaneous solution 60 unit SC BID ml 06/18/18 albuterol sulfate HFA 90 mcg/actuation aerosol inhaler 1 puff INHALATION Q6H PRN PRN 07/28/19 furosemide 40 mg tablet 40 mg PO BID tab 08/11/19 potassium chloride ER 10 mEq capsule,extended release 10 meq PO BID #180 cap 08/11/19 Cetirizine HCl [Zyrtec] 10 mg PO DAILY 11/05/19 Acetaminophen [Tylenol Tablet] 650 mg PO Q6H PRN PRN tab 11/08/19 Metoprolol Tartrate [Lopressor (beta paloma)] 12.5 mg PO BID #30 tab 11/08/19 Following Prescrptions Were Given to Patient: Metoprolol Tartrate [Lopressor (beta paloma)] 12.5 mg PO BID #30 tab Transmission Status: Received by [facility][id number] Primary Care Physician: Eneida Betancourt NP-C [Primary Care Provider] - Please follow up with your Primary Care Physician in: 1-2 weeks Please Follow Up With: Pacer/ICD clinic When: 2 days Please Follow Up With: Triston Chau MD When: 2 weeks Disposition: Home Minutes spent on discharge:: 35 Patient Condition:: Stable Medical Necessity - Tobacco Use Smoking Status: Former smoker Tobacco Use: Non-smoker Meaningful Use Info Meaningful Use Diagnoses (Choose all that apply): None applicable <La Montoya - Last Filed: 11/08/19 14:41> Discharge Date and Diagnosis - Primary Discharge Diagnosis Active and Suspected Problems (Last Reviewed 06/30/18 @ 13:32 by Natalia Pope) Sepsis (Acute) AALIYAH (obstructive sleep apnea) (Acute) Gastroenteritis (Acute) - Secondary Discharge Diagnosis Chronic Problems (Last Reviewed 06/30/18 @ 13:32 by Natalia Pope) Chronic respiratory failure with hypoxia (Chronic) Atherosclerotic heart disease of [place] coronary artery without angina pectoris (Chronic) Automatic implantable cardiac defibrillator in situ (Chronic) Implant: 04/12/[address] 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 Thamllium redistribution study 05/13/14 to assess viability performed, demonstrating large area of infarct involving the anterior wall apex and part of the lateral wall (medical therapy only). Systolic CHF (Chronic) EF 25% 04/2014 History of tobacco use (Chronic) Diabetes mellitus, type II (Chronic) Asthma (Chronic) Allergic rhinitis (Chronic) Hyperlipidemia (Chronic) Hyponatremia (Chronic) Cardiomyopathy, ischemic (Chronic) CAD (coronary artery disease) (Chronic) Morbid obesity with BMI of 40.0-44.9, adult (Chronic) Hospital Course and Treatment Summary of Care Provided: Patient seen by Noe Cohen PA-C under my supervision. The patient is a 64 year old F with a past medical history as listed. She was admitted through the ED with a complaint of nausea and vomiting and diarrhea and also had elevated white cell count as well as tachycardia and tachypnea. She was admitted and managed for sepsis due to gastroenteritis. Diarrhea gradually resolved. Tachycardia and tachypnea also resolved. Stool for enteric pathogen was negative and blood and urine cultures were also negative. Eventually stabilized. Plan was to discharge on 11/07/2019 but prior to discharge, she had a short beat run of nonsustained V. tach. Upon further investigation patient stated she had been off her Coreg at home and she also had an ICD in place which was due to be interrogated this week. Cardiology was consulted and she was started back on her metoprolol. She did not have the nonsustained V. tach again. Per discussion with cardiology, patient was discharged on 11/08/2019 and is to have the AICD check in 2 days and to follow-up with her senior functional analyst within 1 to 2 weeks. Patient seen and examined prior to discharge. She had no complaints and felt well and stated that she was definitely going to be discharged today. Review systems otherwise negative. Labs and vitals reviewed. Home medication reviewed on consult. o/e: Vital Signs Height 5 ft 2.99 in Weight: 360 lb 3.765 oz Weight in Pounds 360.2 lbs Pulse Ox [At REST on Room Air] 82 Pulse Ox 97 Temperature 98.1 F Pulse Rate 93 Respiratory Rate 16 Blood Pressure [BP] 104/76 Blood Pressure 124/84 Blood Pressure Position [BP] Sitting Blood Pressure Position Sitting [] General: Alert, Oriented x3, Cooperative HEENT: Atraumatic, PERRLA, EOMI, Normocephalic Neck: Supple, No JVD, Negative Carotid Bruits Lungs: Clear to auscultation, Normal air movement Cardiovascular: Regular rate, No murmurs, Irregular Rate Abdomen: Bowel Sounds Present, Soft, Non Tender Extremities: No edema, Capillary Refill Less than 3 Seconds Skin: No rashes, No breakdown Musculoskeletal: No Tenderness to Palpation of Joints or Extremities Neurological: Cranial nerves II-XII grossly intact Psych/Mental Status: Normal Affect, Appropriate Plan as above. As of management as per Noe Cohen PA-C's notes which I have reviewed and endorsed. - Physical Exam Vitals/I&O's: Vital Signs Temp Pulse Resp BP Pulse Ox 98.1 F 93 16 124/84 H 82 11/08/19 08:11 11/08/19 11:13 11/08/19 10:56 11/08/19 08:11 11/08/19 12:07 Oxygen Flow Rate (L/min) 3 Oxygen Delivery Method Nasal Cannula Weight: 360 lb 3.765 oz Body Mass Index (BMI) 63.6 Intake and Output for Last 24 Hours 11/06/19 11/07/19 11/08/19 23:59 23:59 23:59 Intake Total 1130 / 1130 1300 / 1300 670 / 670 Output Total 300 / 300 Balance 830 / 830 1300 / 1300 670 / 670 Microbiology Past 72 Hours 11/05/19 16:14 Blood Culture (Wb) - Right Forearm Blood Culture - Preliminary No growth in 48 hours. 11/05/19 16:00 Blood Culture (Wb) - Left Forearm Blood Culture - Preliminary No growth in 48 hours. 11/05/19 15:50 Urine Catheter - Catheter Urine Culture - Final Culture exhibits no growth. 11/06/19 03:49 Stool Enteric Bacteriology - Final 11/05/19 19:55 Mucosa - Nose Respiratory Panel (PCR) - Final Laboratory Results 11/07/19 16:56: POC Glucose 203 H 11/07/19 22:30: POC Glucose 127 H 11/08/19 06:04: Sodium 135 L, Potassium 4.8, Chloride 102, Carbon Dioxide 26.0, Anion Gap 7, BUN 28 H, Creatinine 0.78, Estim Creat Clear Calc 58.39, Est GFR (MDRD) Af Amer 96, Est GFR (MDRD) Non-Af 80, BUN/Creatinine Ratio 36.0 H, Glucose 88, Calcium 8.9 11/08/19 07:59: POC Glucose 98 11/08/19 11:38: POC Glucose 145 H Current Medications Acetaminophen (Tylenol) 650 mg PO Q6H PRN PRN PRN Reason: Pain Score 1-3/Temp > 100.7 F Last Admin: 11/07/19 22:50 Dose: 650 mg Documented by: Albuterol/Ipratropium (Duoneb) 3 ml INHALATION Q4HWA.RT [facility] Last Admin: 11/08/19 10:56 Dose: 3 ml Documented by: Enoxaparin Sodium (Lovenox) 40 mg SC DAILY [facility] Last Admin: 11/08/19 08:10 Dose: Not Given Documented by: Furosemide (Lasix) 40 mg PO BID@0600,1200 [facility] Last Admin: 11/08/19 11:43 Dose: 40 mg Documented by: Glucagon () 1 mg IM .X1 PRN PRN Reason: Hypoglycemia Dextrose (Dextrose 10%-Water) 250 mls @ 999 mls/hr IV X1 PRN; Protocol PRN Reason: HYPOGLYCEMIA Insulin Glargine (Lantus (Bkc)) 64 units SC BID [facility] Last Admin: 11/08/19 08:28 Dose: Not Given Documented by: Insulin Human Lispro (Humalog Kwikpen (Bkc)) 15 unit SC 0800,1200,1700 [facility] Last Admin: 11/08/19 11:41 Dose: Not Given Documented by: Insulin Human Lispro (Humalog Kwikpen (Bkc)) 0 unit SC ACHS [facility]; Protocol Last Admin: 11/08/19 11:41 Dose: Not Given Documented by: Metoprolol Tartrate (Lopressor (Beta Paloma)) 12.5 mg PO BID [facility] Last Admin: 11/08/19 08:29 Dose: 12.5 mg Documented by: Ondansetron HCl (Zofran) 4 mg IV Q8H PRN PRN PRN Reason: NAUSEA/VOMITING Last Admin: 11/08/19 06:24 Dose: 4 mg Documented by: Potassium Chloride (K-Dur) 10 meq PO BID [facility] Last Admin: 11/08/19 08:28 Dose: 10 meq Documented by: Sodium Chloride () 10 - 40 ml IV UD PRN PRN Reason: SALINE FLUSH Last Admin: 11/08/19 06:25 Dose: 20 ml Documented by: Code Visit Inpatient E&M: [id number] Disch Hosp
[2019-11-08 11:50] LABS: Bedside Glucose 145 mg/dL (70-110)
--- NOTE | 2019-11-08 12:09 | NURSING ---
Patient's inhaler and $123.00 returned to patient. Currency verified with patient and she agreed with same.
--- NOTE | 2019-11-09 12:52 | CASEMGMT ---
Case Management DC F/u Call: DC Date: 11/08/19 DC Diagnosis: Sepsis (Acute) 2/2 Gastroenteritis, viral, Nonsustained Vtach, hx ischemic CM, CAD, systolic CHF, AICD, AALIYAH, DMt2, Morbid obesity HTN, HLD, COPD with chronic hypoxic respiratory failure DC Disposition: Home Lace/Strata: 08/27 Called patient listed Cell phone on demographics, no answer, Vm did not verify correct patient and therefore no Vm left at this time. Adrienne French RNCM
== END 2019-11-08 14:50 | disposition home or self-care (01) | DRG 872 ==
LOC: ED 14:27 → PCU 17:59
PROVIDERS: Physician Assistant; Admitting Provider Internal Medicine; Emergency Provider Emergency Medicine; Family Provider Nurse Practitioner; PCP Nurse Practitioner; Visit Provider Student in an Organized Health Care Education/Training Program
DX: A41.89 Other specified sepsis (principal); Z68.44 Body mass index [BMI] 60.0-69.9, adult; J96.11 Chronic respiratory failure with hypoxia; I50.22 Chronic systolic (congestive) heart failure; I47.2 Ventricular tachycardia; R65.20 Severe sepsis without septic shock; G47.33 Obstructive sleep apnea (adult) (pediatric); I25.5 Ischemic cardiomyopathy; I25.10 Atherosclerotic heart disease of native coronary artery without angina pectoris; E66.01 Morbid (severe) obesity due to excess calories; A08.4 Viral intestinal infection, unspecified; E11.9 Type 2 diabetes mellitus without complications; I11.0 Hypertensive heart disease with heart failure; E78.5 Hyperlipidemia, unspecified; J44.9 Chronic obstructive pulmonary disease, unspecified; Z99.81 Dependence on supplemental oxygen; Z95.810 Presence of automatic (implantable) cardiac defibrillator; Z87.891 Personal history of nicotine dependence; Z79.4 Long term (current) use of insulin; I25.2 Old myocardial infarction
CPT/HCPCS: 36415; 71045; 80048; 80053; 81001; 82962; 83605; 83735; 83880; 84443; 84484; 85025; 87040; 87086; 87506; 87633; 93005; 94640; 97116; 97162; 97166; 97530; 97802; 99251; 99285; P9612; A4216; G0463; J2405